=== PATIENT | male | born 1945 | race Caucasian/White ===

== ENCOUNTER 2017-05-10 11:20 | Emergency (ER) | payer MEDICARE ==
[~2017-05-10] VITALS: Ht 172.7 cm; Wt 82.0 kg
[~2017-05-10 11:20] MED LIST: AMLO10TA2 PO; ASPI81TA24 PO; CAPT125TA PO; CORICAP PO; DOCU10CA PO; EFFE150C PO; EFFE75CA75 PO; FLOM5CAP PO; FLUC10TA PO; FOLI1TAB4 PO; FURO20TA2 PO; FURO40TA2 PO; LIPI20TA PO; LISI10TA4 PO; LISI40TAB PO; METO-346 PO; MORP15TA2 PO; MORP60TA PO; MSIR30TA PO; OXYC1TAB23 PO; PANT40TA2 PO; PLAV1TAB2 PO; STOO100C PO; TYLE325T5 PO; VITA200016 PO; WARF-23 PO; WARF4TAB51 PO
[2017-05-10] MEDS ORDERED: SPIR25TA2 PO (11:36)
[2017-05-10] MEDS ORDERED: CARV6.25 PO (11:36)
[2017-05-10] MEDS ORDERED: LASI40TA PO (11:36)
[2017-05-10 13:09] LABS: INR 2.43
[2017-05-10 13:10] LABS: ADD MANUAL DIFFER YES; MEAN CORPUSCULAR HEMOGLOBIN 32.1 pg (27.0-33.0); MEAN CORPUSCULAR HGB CONC 35.2 g/dl (32.0-36.5); MEAN CORPUSCULAR VOLUME 91.1 fl (80.0-96.0); PLATELET COUNT, AUTOMATED 185 k/mm3 (150-450); RED CELL DISTRIBUTION WIDTH 13.5 % (11.5-14.5); WHITE BLOOD COUNT 10.8 K/mm3 (4.0-10.0)
[2017-05-10 13:25] LABS: ALBUMIN 3.6 GM/DL (3.2-5.2); ALBUMIN/GLOBULIN RATIO 0.9 (1.00-1.93); BILIRUBIN,DIRECT 0.1 MG/DL (0.0-0.2); BILIRUBIN,TOTAL 0.4 MG/DL (0.2-1.0); CREATININE FOR GFR 2.48 MG/DL (0.70-1.30); GLOMERULAR FILTRATION RATE 27.3 (>42); POTASSIUM SERUM 4.1 MEQ/L (3.5-5.1); TOTAL PROTEIN 7.6 GM/DL (6.4-8.2)
--- NOTE | 2017-05-10 13:33 | ECGEPIP ---
Stationary ECG Study [facility] - ED Test Date: 2017-05-10 Pat Name: MARY ZULETA Department: Room: - Gender: M Offset Pressman: rn : 1945 Requested By: JIHAN KAUR Order Number: [id number] Reading MD: Sudha Andrade Measurements Intervals Gans Rate: 66 P: -85 KS: 211 QRS: 22 QRSD: 110 T: 180 QT: 454 QTc: 476 Interpretive Statements SINUS RHYTHM WITH SINUS ARRHYTHMIA WITH FIRST DEGREE AV BLOCK SEPTAL MYOCARDIAL INFARCTION, OF INDETERMINATE AGE MODERATE T-WAVE ABNORMALITY, CONSIDER LATERAL ISCHEMIA IVCD DECREASED RATE 06/21/16 Electronically Signed On 05-10-2017 13:32:53 EDT by Sudha Andrade
--- NOTE | 2017-05-10 13:39 | REP ---
CT of the abdomen pelvis without IV or bowel contrast: Comparison is 06/09/2016. The visualized lung tang are unremarkable. The unenhanced hepatic parenchyma is homogeneous. There are several small gallbladder calculi. The gallbladder is otherwise unremarkable. The unenhanced pancreas and spleen are unremarkable. The adrenals and unenhanced kidneys are unremarkable. There is no hydronephrosis. There are calcifications in the renal vickey bilaterally, likely vascular calcifications. The abdominal aorta is unremarkable except for calcified atheroma. There are a few normal-sized periaortic nodes, decreased in size from the prior study. The largest node today measures 7 mm short axis (10 mm previous There is no bowel distension or obstruction. Mesentery is unremarkable. Pelvis: The appendix is unremarkable. The bladder is unremarkable. There is no adenopathy or ascites. There are numerous diverticula in the descending colon and sigmoid colon. However, there is no CT evidence of diverticulitis. Impression: Diverticulosis without CT evidence of diverticulitis. Normal-sized periaortic nodes, decreased in size from the comparison study. No hydronephrosis. Signed by Charlie Khalil MD 05/10/2017 01:30 P
[2017-05-10 13:49] LABS: BANDS 1 % (< 11); EOSINOPHILS 1 % (0-5)
[2017-05-10 13:51] LABS: ANISOCYTOSIS 1+; PLATELET CLUMPS SMALL AMT
--- NOTE | 2017-05-10 14:43 | REP ---
Renal ultrasound: Right Kidney: Right kidney is atrophic size measuring 8.5 x 4.1 x 4.5 cm. The right renal cortex is hyperechoic compatible with medical renal disease. There is no hydronephrosis, calculus, mass or cyst except for linear calcifications compatible with vascular atheroma. Left kidney: The left kidney is normal size measuring 10.6 x 4.7 x 5.3 cm. The left renal cortex demonstrates normal echogenicity. There is no hydronephrosis, calculus, mass or cyst except for linear calcifications compatible with vascular atheroma . Impression: Atrophic right kidney. No hydronephrosis on the right on the left. Vascular atheromatous calcifications. Bladder ultrasound: The bladder is adequately distended. No bladder wall polyps or masses. Impression: Negative bladder ultrasound. Signed by Charlie Khalil MD 05/10/2017 02:35 P
[2017-05-10] MEDS ORDERED: LIDOCAINE 2% JELLY 30 ML As Ordered ONE (15:09)
[2017-05-10] MEDS ORDERED: FINA5TAB2 PO (15:29)
[2017-05-10 15:37] VITALS: BP 153/79
== END 2017-05-10 15:54 | disposition home or self-care (01) ==
LOC: M ED 11:20
DX: N40.1 Benign prostatic hyperplasia with lower urinary tract symptoms (principal); K57.90 Diverticulosis of intestine, part unspecified, without perforation or abscess without bleeding; K80.20 Calculus of gallbladder without cholecystitis without obstruction; N18.9 Chronic kidney disease, unspecified; I25.10 Atherosclerotic heart disease of native coronary artery without angina pectoris; I25.2 Old myocardial infarction; I50.9 Heart failure, unspecified; K21.9 Gastro-esophageal reflux disease without esophagitis; F32.9 Major depressive disorder, single episode, unspecified; I73.9 Peripheral vascular disease, unspecified; Z87.891 Personal history of nicotine dependence; Z95.810 Presence of automatic (implantable) cardiac defibrillator; Z95.2 Presence of prosthetic heart valve; Z79.82 Long term (current) use of aspirin; Z79.899 Other long term (current) drug therapy; Z88.5 Allergy status to narcotic agent; Z88.4 Allergy status to anesthetic agent; Z88.8 Allergy status to other drugs, medicaments and biological substances

== ENCOUNTER 2017-07-11 10:48 | Inpatient (IN) | payer OTHER, MEDICARE ==
[~2017-07-11] VITALS: Ht 175.3 cm; Wt 80.9 kg
[~2017-07-11 10:48] MED LIST changes: +CARV6.25 PO; +FINA5TAB2 PO; +LASI40TA PO; +SPIR25TA2 PO
[2017-07-11] MEDS ORDERED: WELLTAB38 PO (11:13)
[2017-07-11] MEDS ORDERED: OXYC-405 PO (11:13)
[2017-07-11] MEDS ORDERED: ZOLP6.25 PO (11:13)
[2017-07-11 11:58] LABS: BASO # 0.1 10^3/uL (0.0-0.2); BASO % 0.4 % (0.0-1.0); EOS # 0.2 10^3/uL (0.0-0.50); EOS % 1.2 % (0.0-3.0); IMMATURE GRANULOCYTE % 0.6 % (0-0); LYMPH # 1.6 10^3/uL (1.5-4.5); LYMPH % 12.9 % (24.0-44.0); MEAN CORPUSCULAR HEMOGLOBIN 31.7 pg (27.0-33.0); MEAN CORPUSCULAR HGB CONC 33.8 g/dl (32.0-36.5); MEAN CORPUSCULAR VOLUME 93.5 fl (80.0-96.0); MONO # 1.1 10^3/uL (0.0-0.8); MONO % 9.3 % (0.0-5.0); NEUTROPHILS # 9.1 10^3/uL (1.8-7.7); NEUTROPHILS % 75.6 % (36.0-66.0); PLATELET COUNT, AUTOMATED 222 10^3/uL (150-450); WHITE BLOOD COUNT 12.1 10^3/uL (4.0-10.0)
[2017-07-11 12:07] LABS: CALCIUM LEVEL 8.9 MG/DL (8.8-10.2); CREATININE FOR GFR 1.82 MG/DL (0.70-1.30); GLOMERULAR FILTRATION RATE 39.1 (>42)
[2017-07-11 12:40] LABS: INR 2.02
--- NOTE | 2017-07-11 13:05 | REP ---
Noncontrast head CT: History: Altered mental status. Patient on Coumadin. Comparison study: June 21, 2016. Findings: Digital lateral radio frequency engineer radiograph is unremarkable. The patient is edentulous. Bony calvarium is intact. There is fairly heavy vascular calcification in the parotid and vertebral arteries. Incidental note is made of a mass in the left ethmoid sinuses extending into the medial wall of the left orbit and bowing the medial rectus muscle on the left. This is unchanged from the June 21, 2016 prior study. 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 This is unchanged in appearance or size from MRI study dated July 24, 2014. On soft tissue window settings, there are small vessel atherosclerotic changes bilaterally as before. There is diffuse cerebral atrophy. There is no evidence of infarct or hemorrhage. No midline shift or extra-axial fluid collection is seen. Impression: Vascular calcification, diffuse atrophy, small vessel atherosclerotic changes. No acute intracranial abnormality. 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 Signed by Castro Berumen MD 07/11/2017 02:20 P
--- NOTE | 2017-07-11 13:16 | REP ---
Portable chest x-ray: Sitting AP view. History: Weakness. Comparison chest x-ray: June 21, 2016. Findings: Prior median sternotomy wires are seen. Status post cervical discectomy and fusion plating. A unipolar pacemaker is seen in the right heart via the left side. EKG electrodes are noted. The lungs are well inflated and clear. The pleural angles are sharp. Heart is not enlarged. Pulmonary vasculature is not increased. Impression: Pacemaker in place, prior sternotomy. A left atrial appendage clip is seen as before. No active disease. Signed by Castro Berumen MD 07/11/2017 02:20 P
--- NOTE | 2017-07-11 14:03 | REP ---
CT study of the cervical spine without contrast: History: Prior surgery for central cord syndrome. Upper and lower extremity weakness. Comparison CT study April 15, 2016. Technique: Helical scanning is acquired and overlapping 2 mm high resolution axial images were generated and reviewed at bone and soft tissue window settings. Coronal and sagittal multiplanar re-formations images are generated. CT findings: The patient is status post ventral discectomy and fusion plating from C2 through C5 . This is unchanged from the comparison study. There is degenerative narrowing and anterior and posterior osteophytic ridging at C5-6 and C6-7 as before. There is no evidence of fracture or bony erosive or destructive lesion. No subluxation is seen. There is some osteoarthritic facet hypertrophy in the lower cervical spine. The left C3-4 facet is ankylosed. The right C2-3 and C3-4 facet joints appear at least partially fused. This is unchanged. Alignment is normal and unchanged. There is posterior longitudinal ligament ossification on either side of midline at the ventral margin of the spinal canal at the C4 level. This produces central canal stenosis. It is unchanged. On the right at C5, there is somewhat nodular ossification of the anterior longitudinal ligament versus discogenic spurring which compresses the right ventral lateral aspect of the cord and produces moderate central canal stenosis. This is unchanged as well. There is posterior osteophytic ridging producing moderate central canal stenosis at C5-6 with bilateral uncovertebral spurring and C5-6 unchanged. Similar slightly less prominent changes are noted C6-7 again with central canal stenosis. This is also unchanged. Neural foraminal narrowing is noted particularly on the right at C5-6 and to some degree on the left. Impression: Extensive fusion C2-C5. 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 Central canal stenosis is seen at C5-6 and C6-7 as well with degenerative spondylosis changes here and bilateral neural foraminal narrowing. Findings are stable when compared with the April 15, 2016 study. No acute abnormality seen. Signed by Castro Berumen MD 07/11/2017 02:21 P
[2017-07-11] MEDS ORDERED: FINA5TAB2 PO (14:41)
[2017-07-11] MEDS ORDERED: WARF-23 PO (14:41)
[2017-07-11] MEDS ORDERED: ATOR40TA75 PO (14:41)
[2017-07-11] MEDS ORDERED: VITMTA PO (14:41)
[2017-07-11] MEDS ORDERED: SODIUM CHLORIDE 0.9% 1000 ML IV ONE (16:30)
[2017-07-11] MEDS: NS 1,000 ML IV SCH ×2 (16:42→18:23)
[2017-07-11] MEDS ORDERED: IPRATROPIUM 0.5MG/ALBUTEROL 2.5MG INH SOL UD 3ML (DUONEB)(J7620) NEB PRN (16:45)
[2017-07-11 17:03] LABS: MAGNESIUM LEVEL 2.8 MG/DL (1.8-2.4); PHOSPHORUS LEVEL 3.3 MG/DL (2.5-4.9)
[2017-07-11 17:05] LABS: ALBUMIN 3.5 GM/DL (3.2-5.2); BILIRUBIN,TOTAL 0.6 MG/DL (0.2-1.0); CALCIUM LEVEL 8.3 MG/DL (8.8-10.2); CREATININE FOR GFR 1.81 MG/DL (0.70-1.30); GLOMERULAR FILTRATION RATE 39.3 (>42); POTASSIUM SERUM 3.9 MEQ/L (3.5-5.1)
--- NOTE | 2017-07-11 17:17 | HPEPDOC ---
General Date of Admission Primary Care Physician: Jr Ho Collins Attending Physician: KURTIS HSIEH Chief Complaint The patient is a 71-year-old male admitted with a reason for visit of weakness. History of Present Illness This is a pleasant 71-year-old male with a pertinent past medical history of congestive heart failure, chronic renal disease, bioprosthetic mitral valve replacement, atrial fibrillation, AICD, tobacco abuse, chronic back pain on long -term opioids presented in for weakness for 3 days. Patient was brought in via EMS is accompanied by his Mrs. Urias, his daughter, Mei, and son, Ruddy. The patient states that this episode started around Thursday and after he had his nuclear stress test done at Dr. Lopez's office. The patient states after finishing on his noticed that he was extremely pale and unsteady. Patient states that he did not fall on evening. His first episode of falling was Thursday around 9:00 when he was sitting on a kitchen counter barstool. He stated he was reaching for a paper under the chair, felt weak in his legs and fell. Patient stated he felt like he was unable to get up because he had no strength in his upper extremities and his lower extremities. After awhile the episode subsided and the rest of the day he was able to use his walker and do his daily tasks. His second episode happened on the morning of admission at 2 AM when he was trying to get a bed to go use the restroom. Patient states that his legs collapsed on him he fell down on his butt and was leaning against the bed. Patient states it felt like his lower extremities and his upper extremity felt limp. Patient denies any change in his speech or having any dystonia movements of his upper or lower extremities. Patient states in the last 1 month his recent change in medication includes warfarin because his INR has been greater than 3 his current schedule is a half a tab on Thursday and a full tablet on Thursday and Thursday. He also states the most recent Rx change was his OxyContin. He was taking 20 mg BID OxyContin in the beginning of the month and then for the past 1 -1/2 weeks to 2 weeks he was increased to 40 mg BID. Patient was previously on morphine for his chronic back pain but was recently changed to OxyContin via his PCP Dr. Ho. In the ER the patient's vitals were stable his CBC showed a leukocytosis of 12.1 his complete metabolic panel showed Creatinine level was 1.82 which is close to patients baseline between 1.6 to 1.8. His INR was 2.02. Head CT, cervical spine CT and chest x-ray did not show any acute processes. Home Medications Scheduled Aspirin (Aspirin EC) 81 Mg Tab, 81 MG PO QPM, (Reported) Atorvastatin Calcium (Atorvastatin Calcium) 40 Mg Tab, 40 MG PO QPM, (Reported) Bupropion HCl (Wellbutrin Xl) 150 Mg Tab, 150 MG PO DAILY, (Reported) Carvedilol (Carvedilol) 6.25 Mg Tab, 6.25 MG PO BID, (Reported) Docusate Sodium (Stool Softener) 100 Mg Cap, 100 MG PO BID, (Reported) Finasteride (Finasteride) 5 Mg Tab, 5 MG PO DAILY, (Reported) Folic Acid (Folic Acid) 1 Mg Tab, 1 MG PO DAILY, (Reported) Furosemide (Lasix) 40 Mg Tab, 40 MG PO DAILY, (Reported) Multivitamins *[facility] STOCKED* (Thera M Plus *[facility] STOCKED*) 1 Tab Tab, 1 TAB PO DAILY, (Reported) Oxycodone HCl (Oxycodone HCl ER) 40 Mg Tab, 1 TAB PO BID, (Reported) Pantoprazole Sodium (Pantoprazole Sodium) 40 Mg Tab, 40 MG PO DAILY, (Reported) Spironolactone (Spironolactone) 25 Mg Tab, 25 MG PO DAILY, (Reported) Venlafaxine Hydrochloride (Effexor Xr) 75 Mg Cap, 225 MG PO DAILY, (Reported) Warfarin Sod (Warfarin Sodium) 5 Mg Tab, 5 MG PO 4XWK, (Reported) SUN, TUES, THURS, SAT Warfarin Sod (Warfarin Sodium) 5 Mg Tab, 2.5 MG PO 3XW, (Reported) MON, WED, FRI Zolpidem Tartrate (Zolpidem Tartrate ER) 6.25 Mg Tab, 6.25 MG PO QHS, (Reported) Allergies Coded Allergies: Terbinafine (Unverified Allergy, Intermediate, HIVES, 07/11/17) Fentanyl (Verified Allergy, Unknown, 03/22/15) Lidocaine (Verified Allergy, Unknown, 03/22/15) Past Medical History Medical History 1. Congestive heart failure 2. Chronic renal failure 3. Bioprosthetic mitral valve replacement, 09/01/14 4. Autonomic implantable cardioverter-defibrillator 5. Hyperlipidemia 6. Chronic back pain 7. Cardiovascular disease 8. Hypertension 9. Peripheral vascular disease 10. Tobacco abuse 11. Gastroesophageal reflux disease 12. Depression 13. Atrial fibrillation Surgical History 1. Mitral valve replacement 2. AICD insertion 3. Carotid endarterectomy 4. Multiple back surgeries Social History * Smoker: current smoker (50+ years) Alcohol: Denies Drugs: denies Lives at home with his Review of Symptoms Constitutional: Reports: Weakness (generalized weakness) ENT: Denies: Head Aches Pulmonary: Denies: Dyspnea, Cough Cardiovascular: Denies: Chest Pain, Palpitations Gastrointestinal: Reports: Constipation (chronic), Denies: Nausea, Vomiting, Abdominal Pain, Diarrhea Hematologic: Denies: Bruising (lightheadedness when changing position.) Neurological: Reports: Weakness, Incoordination (unable to move legs), Other Symptoms, Denies: Change in speech, Confusion Physical Examination General Exam: Positive: Alert, Cooperative, No Acute Distress Eye Exam: Positive: PERRLA (Miosis ), Negative: Ptosis ENT Exam: Positive: Atraumatic, Mucous membr. moist/pink (with dentures) Neck Exam: Positive: Supple, Negative: JVD Chest Exam: Positive: Wheezing (expiratory wheezing bilaterally R>L), Negative: Clear to auscultation, Normal air movement Heart Exam: Positive: Rate Normal, Regular Rhythm Telemetry: Positive: Sinus Abdomen Exam: Positive: Normal bowel sounds, Soft, Negative: Tenderness Extremity Exam: Negative: Clubbing, Cyanosis, Edema Skin Exam: Positive: Nl turgor and temperature Neuro Exam: Positive: Normal Speech (soft-spoken but family said that is baseline), Strength at 5/5 X4 ext, Normal Tone, Sensation Intact, Cranial Nerves 3-12 NL Psych Exam: Positive: Mental status NL Vital Signs Vital Signs Date Time Temp Pulse Resp B/P (MAP) Pulse Ox O2 Delivery O2 Flow Rate FiO2 07/11/17 13:10 97.3 70 20 138/77 (97) 96 Room Air Laboratory Data Labs 24H Laboratory Tests 2 07/11/17 11:29: Immature Granulocyte % (Auto) 0.6H, White Blood Count 12.1H, Red Blood Count 4.17L, Hemoglobin 13.2L, Hematocrit 39.0L, Mean Corpuscular Volume 93.5, Mean Corpuscular Hemoglobin 31.7, Mean Corpuscular Hemoglobin Concent 33.8, Red Cell Distribution Width 14.0, Platelet Count 222, Neutrophils (%) (Auto) 75.6H, Lymphocytes (%) (Auto) 12.9L, Monocytes (%) (Auto) 9.3H, Eosinophils (%) (Auto) 1.2, Basophils (%) (Auto) 0.4, Neutrophils # (Auto) 9.1H, Lymphocytes # (Auto) 1.6, Monocytes # (Auto) 1.1H, Eosinophils # (Auto) 0.2, Basophils # (Auto) 0.1, Immature Granulocyte # (Auto) 0.1H, Nucleated Red Blood Cells % (auto) 0.0, Anion Gap 7L, Glomerular Filtration Rate 39.1L, Blood Urea Nitrogen 38H, Creatinine 1.82H, Sodium Level 139, Potassium Level 4.0, Chloride Level 102, Carbon Dioxide Level 30, Calcium Level 8.9, Total Creatine Kinase 67, Creatine Kinase MB 1.8, Creatine Kinase MB Relative Index 2.68, Troponin I 0.03 07/11/17 12:23: Prothrombin Time 23.6H, Prothromb Time International Ratio 2.02 07/11/17 14:31: Urine Appearance CLEAR, Urine Color YELLOW, Urine pH 5.0, Urine Specific [place] 1.010, Urine Protein NEGATIVE, Urine Glucose (UA) NEGATIVE, Urine Ketones NEGATIVE, Urine Urobilinogen 0.2, Urine Bilirubin NEGATIVE, Urine Leukocyte Esterase NEGATIVE, Urine Blood NEGATIVE, Urine Nitrite POSITIVE, Urine WBC (Auto) 0, Urine RBC (Auto) 1, Urine Hyaline Casts (Auto) 1, Urine Bacteria (Auto) NEGATIVE, Urine Squamous Epithelial Cells 0, Urine Mucus (Auto) SMALL, Urine Sperm (Auto) 07/11/17 14:35: Lactic Acid Level 1.0 07/11/17 14:36: CBC/BMP Laboratory Tests 07/11/17 11:29 Red Blood Count 4.17 L, Mean Corpuscular Volume 93.5, Mean Corpuscular Hemoglobin 31.7, Mean Corpuscular Hemoglobin Concent 33.8, Red Cell Distribution Width 14.0, Neutrophils (%) (Auto) 75.6 H, Lymphocytes (%) (Auto) 12.9 L, Monocytes (%) (Auto) 9.3 H, Eosinophils (%) (Auto) 1.2, Basophils (%) ( Auto) 0.4, Neutrophils # (Auto) 9.1 H, Lymphocytes # (Auto) 1.6, Monocytes # ( Auto) 1.1 H, Eosinophils # (Auto) 0.2, Basophils # (Auto) 0.1, Calcium Level 8.9 , Total Creatine Kinase 67 Microbiology Microbiology 07/11/17 Blood Culture, Received Pending 07/11/17 Blood Culture, Received Pending 07/11/17 Urine Culture, Received Pending Assessment/Plan 1. Generalized weakness of the upper or lower extremities likely due to deconditioned muscles versus an infectious cause versus TIA versus stroke. Head CT, chest x-ray and cervical CT was negative for any acute processes. There was a leukocytosis of 12.1 on admission. UA was negative for bacteria or leukocyte esterase but was negative for nitrate. Patient is not complaining of any dysuria or pungent urine. Urine and blood cultures have been sent. Unlikely this is myasthenia gravis but we have ordered an acetylcholine receptor antibody test which is currently pending. Have ordered PT and OT to evaluate and treat the patient. 2. Expiratory wheezing R>L, have ordered DuoNeb's. Likely due to emphysema/COPD from patient's history of chronic tobacco abuse versus an infectious cause. Patient has been afebrile. Chest x-ray was negative for any acute changes. We' ll continue to monitor. 3. Lightheadedness. Orthostatics came back positive we'll hold the patient's Lasix, Spirolactone and Effexor because they're known causes of orthostatic hypotension. We have started the patient with fluids and will continue to monitor him. 4. Atrial fibrillation. Patient has an AICD, and will continue with home warfarin schedule and carvedilol . We'll get daily INRs. 5. History of Chronic kidney disease. Patient's creatinine was 1.8 which is close to patient's baseline. We'll continue to monitor the patient with daily CMPs 6. History of Congestive heart failure. We'll continue with patient's home medication, but hold Lasix and Spirolactone 7. Depression. We'll hold on the patient Effexor because patient's orthostatics were positive. And they are known to cause orthostatic hypotension. 8. Chronic back pain. Will not continue the patient's OxyContin 40 mg twice a day. Instead while inpatient we will start the patient on OxyContin 20 mg twice a day with Percocet 5 -325mg every 4 hours when necessary for moderate to severe breakthrough pain. 9. Tobacco abuse. Current smoker with a 50+ years of smoking if needed can order nicotine patches. 10. GERD. We'll continue with the patient on his home Protonix 40 mg daily. 11. DVT prophylaxis. Patient is on Coumadin and will follow with daily INRs to make sure in therapeutic levels. Plan / VTE VTE Prophylaxis Ordered?: Yes (Coumadin) GME ATTESTATION GME ATTESTATION My preceptor for this patient encounter was physically present in the building during the encounter and was fully available. As needed, all aspects of the patient interview, examination, medical decision making process, and medical care plan development were reviewed and approved by the preceptor. Preceptor is aware and concurs with the plan as stated in the body of this note and will attest to such by his/her cosignature. ATTENDING NOTE I, Merari Aviles, have both independently examined this patient as well as reviewed the documentation. I have discussed in detail with the resident the findings and plan of treatment as documented in the residents documentation. I will continue to follow the patient and offer further guidance to the patients care as necessary during this hospital stay. HENRI MORA DO Jul 11, 2017 16:27 MERARI AVILES MD Jul 26, 2017 18:12
[2017-07-11 17:45] VITALS: BP 166/80
[2017-07-11] MEDS: WARFARIN SOD 5 MG TAB PO SCH (18:22)
[2017-07-11] MEDS: PERCOCET 5MG/325MG TAB PO PRN (18:32)
[2017-07-11 20:00] VITALS: BP 165/92
[2017-07-11] MEDS ORDERED: IPRATROPIUM 0.5MG/ALBUTEROL 2.5MG INH SOL UD 3ML (DUONEB)(J7620) NEB SCH (20:00)
[2017-07-11] MEDS: ATORVASTATIN 20 MG TAB PO SCH (20:29)
[2017-07-11] MEDS: DOCUSATE SODIUM 100 MG CAP PO SCH (20:29)
[2017-07-11] MEDS: ASPIRIN 81 MG ENTERIC TAB PO SCH (20:30)
[2017-07-11] MEDS: oxyCODONE 20 MG CR TAB PO SCH (20:32)
[2017-07-11] MEDS: zolPIDEM CR 6.25MG TABLET (AMBIEN CR) PO SCH (20:32)
[2017-07-11] MEDS: CARVedilol 6.25 MG TAB PO SCH (20:44)
[2017-07-11] MEDS ORDERED: TAMSULOSIN 0.4 MG CAP PO SCH (21:00)
[2017-07-12] VITALS (9 sets, daily range): BP systolic 100–164; BP diastolic 54–84
[2017-07-12] MEDS: NS 1,000 ML IV SCH ×2 (04:18→17:00)
[2017-07-12] MEDS: PERCOCET 5MG/325MG TAB PO PRN ×3 (04:47→16:58)
[2017-07-12 05:21] LABS: BASO # 0.1 10^3/uL (0.0-0.2); BASO % 0.6 % (0.0-1.0); EOS # 0.2 10^3/uL (0.0-0.50); EOS % 1.8 % (0.0-3.0); IMMATURE GRANULOCYTE % 0.5 % (0-0); LYMPH # 2.3 10^3/uL (1.5-4.5); LYMPH % 23.2 % (24.0-44.0); MEAN CORPUSCULAR HEMOGLOBIN 30.9 pg (27.0-33.0); MEAN CORPUSCULAR VOLUME 93.8 fl (80.0-96.0); MONO # 1.1 10^3/uL (0.0-0.8); MONO % 11.1 % (0.0-5.0); NEUTROPHILS # 6.1 10^3/uL (1.8-7.7); NEUTROPHILS % 62.8 % (36.0-66.0); PLATELET COUNT, AUTOMATED 215 10^3/uL (150-450); RED CELL DISTRIBUTION WIDTH 14.1 % (11.5-14.5); WHITE BLOOD COUNT 9.8 10^3/uL (4.0-10.0)
[2017-07-12 05:45] LABS: ALBUMIN 3.1 GM/DL (3.2-5.2); ALBUMIN/GLOBULIN RATIO 0.82 (1.00-1.93); BILIRUBIN,TOTAL 0.6 MG/DL (0.2-1.0); CALCIUM LEVEL 7.8 MG/DL (8.8-10.2); CREATININE FOR GFR 1.67 MG/DL (0.70-1.30); GLOMERULAR FILTRATION RATE 43.1 (>42); MAGNESIUM LEVEL 2.6 MG/DL (1.8-2.4); POTASSIUM SERUM 3.7 MEQ/L (3.5-5.1); TOTAL PROTEIN 6.9 GM/DL (6.4-8.2)
[2017-07-12 05:59] LABS: INR 1.77
[2017-07-12] MEDS: IPRATROPIUM 0.5MG/ALBUTEROL 2.5MG INH SOL UD 3ML (DUONEB)(J7620) NEB SCH ×3 (08:00→20:37)
[2017-07-12] MEDS ORDERED: SPIRONOLACTONE 25 MG TAB PO SCH (09:00)
[2017-07-12] MEDS ORDERED: FUROSEMIDE 40 MG TAB PO SCH (09:00)
[2017-07-12] MEDS ORDERED: VENLAFAXINE **XR** 75MG CAPSULE PO SCH (09:00)
[2017-07-12] MEDS: MULTIVITAMINS/MINERALS THERAP 1 TAB PO SCH (09:06)
[2017-07-12] MEDS: FOLIC ACID 1 MG TAB PO SCH (09:06)
[2017-07-12] MEDS: NICOTINE 14 MG/24 HR TRANSDERMAL TD SCH (09:06)
[2017-07-12] MEDS: CARVedilol 6.25 MG TAB PO SCH ×2 (09:06→20:21)
[2017-07-12] MEDS: DOCUSATE SODIUM 100 MG CAP PO SCH ×2 (09:07→20:20)
[2017-07-12] MEDS: FINASTERIDE 5 MG TAB PO SCH (09:07)
[2017-07-12] MEDS: buPROPion **XL** TABLET 150MG (WELLBUTRIN XL) PO SCH (09:07)
[2017-07-12] MEDS: PANTOPRAZOLE 40MG TAB (PROTONIX) PO SCH (09:07)
[2017-07-12] MEDS: oxyCODONE 20 MG CR TAB PO SCH ×2 (09:15→20:22)
[2017-07-12] MEDS: VENLAFAXINE **XR** 75MG CAPSULE PO SCH (11:01)
--- NOTE | 2017-07-12 16:04 | IPNPDOC ---
Date Seen The patient was seen on 07/12/17. Progress Note Hospitalist Progress Note Subjective: Patient states that he is not feeling well, but is not able to elaborate much more Objective: Physical Exam: Vitals: Vital Sign - Last 24 Hours 07/11/17 07/11/17 07/11/17 07/11/17 16:09 16:10 16:19 17:18 Temp 97.2 Pulse 72 73 71 73 Resp 20 B/P (MAP) 136/76 (96) 100/62 (75) 136/76 (96) 143/67 (92) 100/62 (75) Pulse Ox 96 97 O2 Delivery Room Air 07/11/17 07/11/17 07/11/17 07/11/17 17:30 17:45 18:32 20:00 Temp 98.2 98.3 Pulse 72 80 Resp 18 18 18 18 B/P (MAP) 166/80 (108) 165/92 (116) Pulse Ox 95 97 O2 Delivery Room Air Room Air Room Air 07/11/17 07/11/17 07/12/17 07/12/17 20:32 20:44 00:00 00:00 Temp 98.2 Pulse 64 70 Resp 18 16 B/P (MAP) 140/58 145/63 (90) Pulse Ox 96 92 O2 Delivery Nasal Cannula Room Air O2 Flow Rate 2.0 07/12/17 07/12/17 07/12/17 07/12/17 04:21 04:27 04:28 04:30 Temp 97.0 Pulse 70 76 73 B/P (MAP) 122/84 (97) 125/72 (89) 100/54 (69) Pulse Ox 99 O2 Delivery Nasal Cannula O2 Flow Rate 2.0 07/12/17 07/12/17 07/12/17 07/12/17 04:47 08:00 09:06 09:15 Temp 97.3 Pulse 69 69 Resp 18 16 18 B/P (MAP) 164/78 (106) 164/78 Pulse Ox 98 O2 Delivery Room Air Room Air 07/12/17 07/12/17 07/12/17 07/12/17 09:28 11:33 11:55 12:00 Temp 96.7 Pulse 66 64 70 Resp 20 18 B/P (MAP) 128/70 (89) 162/82 (108) 152/72 (98) Pulse Ox 99 O2 Delivery Room Air Room Air 07/12/17 12:03 Resp 18 O2 Delivery Room Air General: Awake, alert, lying in bed and seems to have very little interest in interacting HEENT: Normocephalic, atraumatic, extraocular movements intact CV: Regular rate and rhythm Lungs: Clear to auscultation bilaterally Abd: Soft, nontender, nondistended Extremities: No edema Neuro: Alert and oriented 3, normal speech, 5 out of 5 strength in all extremities Psych: Very flat affect with anhedonia Labs and Imaging: Laboratory Tests 07/12/17 04:58 Red Blood Count 4.01 L, Mean Corpuscular Volume 93.8, Mean Corpuscular Hemoglobin 30.9, Mean Corpuscular Hemoglobin Concent 33.0, Red Cell Distribution Width 14.1, Neutrophils (%) (Auto) 62.8, Lymphocytes (%) (Auto) 23.2 L, Monocytes (%) (Auto) 11.1 H, Eosinophils (%) (Auto) 1.8, Basophils (%) ( Auto) 0.6, Neutrophils # (Auto) 6.1, Lymphocytes # (Auto) 2.3, Monocytes # (Auto ) 1.1 H, Eosinophils # (Auto) 0.2, Basophils # (Auto) 0.1, Calcium Level 7.8 L, Aspartate Amino Transf (AST/SGOT) 16, Alanine Aminotransferase (ALT/SGPT) 20, Alkaline Phosphatase 140 H, Total Bilirubin 0.6, Total Protein 6.9, Albumin 3.1 L Assessment and Plan: 71-year-old male with chronic systolic CHF, chronic kidney disease stage III, bioprosthetic mitral valve, atrial fibrillation status post AICD, chronic back pain on long-term opioids, depression who presents to the emergency department after several days of extreme weakness with falls which his family reports started after he had a nuclear medicine stress test. 1. Weakness with falls secondary to orthostatis and polypharmacy: I suspect this is multifactorial in nature. At this time, the patient is noted to be orthostatic, which I suspect is contributing to his weakness and falls. We have stopped his home Lasix and spironolactone and lifted his fluid restriction. We will hydrate him gently and continue to monitor him closely. We also will stop his home Flomax, which I discussed with his hunting guide Dr. Lopez. We'll also have PT and OT work with him. Additionally, his home OxyContin was evidently recently increased from 20 mg twice a day to 40 mg twice a day. We will decrease this back to 20 mg twice a day. We will also stop his gabapentin, as that is evidently new medication for him. Acetylcholine receptor antibody is pending, but I do not think this represents a myasthenia gravis. Additionally, CT of his C-spine does show central Canal stenosis at C5-C7, however, it shows that this is stable and has not changed since March 2016. The patient does not have any weakness on a supine exam, and he is not having any difficulty urinating, so I do not think that this represents any contributing factors. He states that the surgeon who was operated on his back in the past is in [place]. 2. Acute on chronic kidney disease stage III: The patient's baseline creatinine is in the mid ones, but upon presentation, his creatinine was 1.82. As mentioned above, we will hydrate him gently, while lifting his fluid restriction and holding his home Lasix and spironolactone. 3. Chronic systolic CHF: It appears that the patient is mildly over diuresed at this point. We are holding his diuretics and hydrating him. The last echo in our system is 2 years old and showed an ejection fraction of 20-25% as well as moderate pulmonary hypertension. We will get an updated echo. 4. Atrial fibrillation status post AICD: Continue the patient on his home Coumadin, and follow daily INRs. His INR today is mildly subtherapeutic, however , yesterday and today are the days where he happens to take 5 mg of Coumadin 2 days in a row, as where the rest of the week he alternates that with 2.5 mg. We will hold off on increasing his Coumadin until we see tomorrow's INR. Currently rate controlled, continue home beta lynn. 5. Chronic back pain on [facility] opioids: As mentioned above, we have decreased his OxyContin back to 20 mg by mouth twice a day. He will also have Percocet as needed for breakthrough pain. We have stopped the gabapentin that was recently started. 6. BPH: We will continue the patient on his home Proscar, but given his orthostasis, we will stop his Flomax, a change which I have discussed with his hunting guide Dr. Lopez, who is in agreement. 7. Depression: The patient has evidently been on Effexor and Wellbutrin for a long while. We will continue them both at this time, as the family reports that he has had adverse outcomes to stopping them in the past. We will attempt to adjust his other medications that may cause orthostasis before we change these. The patient still appears very flat, but he denies any suicidal ideation. DVT prophylaxis: Home Coumadin and SCDs Dispo: pending improvement in orthostasis VS, I&O, 24H, Fishbone Vital Signs/I&O Vital Signs Date Time Temp Pulse Resp B/P (MAP) Pulse Ox O2 Delivery O2 Flow Rate FiO2 07/12/17 12:03 18 Room Air 07/12/17 12:00 96.7 64 99 07/12/17 11:55 162/82 (108) 152/72 (98) 07/12/17 04:30 2.0 I&O- Last 24 Hours up to 6 AM 07/13/17 06:00 Intake Total 240 ml Output Total 350 ml Balance -110 ml Laboratory Data 24H LABS Laboratory Tests 2 07/12/17 04:58: Immature Granulocyte % (Auto) 0.5H, White Blood Count 9.8, Red Blood Count 4.01L , Hemoglobin 12.4L, Hematocrit 37.6L, Mean Corpuscular Volume 93.8, Mean Corpuscular Hemoglobin 30.9, Mean Corpuscular Hemoglobin Concent 33.0, Red Cell Distribution Width 14.1, Platelet Count 215, Neutrophils (%) (Auto) 62.8, Lymphocytes (%) (Auto) 23.2L, Monocytes (%) (Auto) 11.1H, Eosinophils (%) (Auto ) 1.8, Basophils (%) (Auto) 0.6, Neutrophils # (Auto) 6.1, Lymphocytes # (Auto) 2.3, Monocytes # (Auto) 1.1H, Eosinophils # (Auto) 0.2, Basophils # (Auto) 0.1, Immature Granulocyte # (Auto) 0.1H, Nucleated Red Blood Cells % (auto) 0.0, Prothrombin Time 21.2H, Prothromb Time International Ratio 1.77, Anion Gap 7L, Glomerular Filtration Rate 43.1, Blood Urea Nitrogen 34H, Creatinine 1.67H, Sodium Level 141, Potassium Level 3.7, Chloride Level 106, Carbon Dioxide Level 28, Calcium Level 7.8L, Aspartate Amino Transf (AST/SGOT) 16, Alanine Aminotransferase (ALT/SGPT) 20, Alkaline Phosphatase 140H, Total Bilirubin 0.6, Total Protein 6.9, Albumin 3.1L, Phosphorus Level 3.4, Magnesium Level 2.6H, C- Reactive Protein, Quantitative 0.92H, Albumin/Globulin Ratio 0.82L CBC/BMP Laboratory Tests 07/12/17 04:58 Red Blood Count 4.01 L, Mean Corpuscular Volume 93.8, Mean Corpuscular Hemoglobin 30.9, Mean Corpuscular Hemoglobin Concent 33.0, Red Cell Distribution Width 14.1, Neutrophils (%) (Auto) 62.8, Lymphocytes (%) (Auto) 23.2 L, Monocytes (%) (Auto) 11.1 H, Eosinophils (%) (Auto) 1.8, Basophils (%) ( Auto) 0.6, Neutrophils # (Auto) 6.1, Lymphocytes # (Auto) 2.3, Monocytes # (Auto ) 1.1 H, Eosinophils # (Auto) 0.2, Basophils # (Auto) 0.1, Calcium Level 7.8 L, Aspartate Amino Transf (AST/SGOT) 16, Alanine Aminotransferase (ALT/SGPT) 20, Alkaline Phosphatase 140 H, Total Bilirubin 0.6, Total Protein 6.9, Albumin 3.1 L Microbiology Microbiology 07/11/17 Blood Culture - Preliminary, Resulted No growth after 24 hours . All specim... 07/11/17 Blood Culture - Preliminary, Resulted No growth after 24 hours . All specim... 07/11/17 Urine Culture - Final, Complete KURTIS HSIEH Jul 12, 2017 16:04
[2017-07-12] MEDS: WARFARIN SOD 5 MG TAB PO SCH (16:57)
[2017-07-12] MEDS: ATORVASTATIN 20 MG TAB PO SCH (20:21)
[2017-07-12] MEDS: ASPIRIN 81 MG ENTERIC TAB PO SCH (20:21)
[2017-07-12] MEDS: zolPIDEM CR 6.25MG TABLET (AMBIEN CR) PO SCH (20:34)
[2017-07-13] VITALS (8 sets, daily range): BP systolic 140–182; BP diastolic 66–88
[2017-07-13 05:17] LABS: BASO # 0.1 10^3/uL (0.0-0.2); BASO % 0.6 % (0.0-1.0); EOS # 0.2 10^3/uL (0.0-0.50); IMMATURE GRANULOCYTE % 0.5 % (0-0); LYMPH # 2.4 10^3/uL (1.5-4.5); LYMPH % 21.2 % (24.0-44.0); MEAN CORPUSCULAR HEMOGLOBIN 31.3 pg (27.0-33.0); MEAN CORPUSCULAR HGB CONC 33.2 g/dl (32.0-36.5); MEAN CORPUSCULAR VOLUME 94.6 fl (80.0-96.0); MONO # 1.1 10^3/uL (0.0-0.8); MONO % 9.7 % (0.0-5.0); NEUTROPHILS # 7.4 10^3/uL (1.8-7.7); PLATELET COUNT, AUTOMATED 204 10^3/uL (150-450); RED CELL DISTRIBUTION WIDTH 14.2 % (11.5-14.5); WHITE BLOOD COUNT 11.2 10^3/uL (4.0-10.0)
[2017-07-13 05:26] LABS: INR 1.9
[2017-07-13 05:34] LABS: CALCIUM LEVEL 8.2 MG/DL (8.8-10.2); CREATININE FOR GFR 1.38 MG/DL (0.70-1.30); GLOMERULAR FILTRATION RATE 53.8 (>42); MAGNESIUM LEVEL 2.3 MG/DL (1.8-2.4); POTASSIUM SERUM 3.8 MEQ/L (3.5-5.1)
[2017-07-13] MEDS: PERCOCET 5MG/325MG TAB PO PRN ×3 (05:54→17:07)
--- NOTE | 2017-07-13 07:51 | ECGEPIP ---
Stationary ECG Study [facility] - ED Test Date: 2017-07-11 Pat Name: MARY ZULETA Department: Room: - Gender: M Learning Design Specialist: inder : 1945 Requested By: Fredis Waggoner Order Number: [id number] Reading MD: Sudha Andrade Measurements Intervals [place] Rate: 71 P: 101 [place]: 264 QRS: 28 QRSD: 101 T: 147 QT: 440 QTc: 481 Interpretive Statements SINUS RHYTHM WITH FIRST DEGREE AV BLOCK LOW QRS VOLTAGE IN EXTREMITY LEADS ANTEROSEPTAL MYOCARDIAL INFARCTION, OF INDETERMINATE AGE NSTTW ABNORMALITY SIMILAR 05/10/17 Electronically Signed On 07-13-2017 7:51:25 EDT by Sudha Andrade
[2017-07-13] MEDS: IPRATROPIUM 0.5MG/ALBUTEROL 2.5MG INH SOL UD 3ML (DUONEB)(J7620) NEB SCH ×3 (08:25→20:50)
[2017-07-13] MEDS: NICOTINE 14 MG/24 HR TRANSDERMAL TD SCH (09:17)
[2017-07-13] MEDS: VENLAFAXINE **XR** 75MG CAPSULE PO SCH (09:18)
[2017-07-13] MEDS: oxyCODONE 20 MG CR TAB PO SCH ×2 (09:19→21:06)
[2017-07-13] MEDS: FOLIC ACID 1 MG TAB PO SCH (09:19)
[2017-07-13] MEDS: FINASTERIDE 5 MG TAB PO SCH (09:20)
[2017-07-13] MEDS: PANTOPRAZOLE 40MG TAB (PROTONIX) PO SCH (09:20)
[2017-07-13] MEDS: CARVedilol 6.25 MG TAB PO SCH ×2 (09:20→21:07)
[2017-07-13] MEDS: buPROPion **XL** TABLET 150MG (WELLBUTRIN XL) PO SCH (09:21)
[2017-07-13] MEDS: FUROSEMIDE 40 MG TAB PO SCH (09:21)
[2017-07-13] MEDS: MULTIVITAMINS/MINERALS THERAP 1 TAB PO SCH (09:21)
[2017-07-13] MEDS: DOCUSATE SODIUM 100 MG CAP PO SCH ×2 (09:21→21:07)
[2017-07-13] MEDS ORDERED: WARFARIN SOD 2.5 MG TAB PO SCH (17:00)
[2017-07-13] MEDS ORDERED: WARFARIN SOD 5 MG TAB PO ONE (17:00)
--- NOTE | 2017-07-13 18:33 | IPNPDOC ---
Date Seen The patient was seen on 07/13/17. Progress Note Hospitalist Progress Note Subjective: Patient states that he is not feeling well, but is again not able to elaborate much more Objective: Physical Exam: Vitals: Vital Sign - Last 24 Hours 07/12/17 07/12/17 07/12/17 07/12/17 20:11 20:11 20:15 20:21 Temp 97.3 Pulse 71 71 71 72 Resp 20 B/P (MAP) 129/60 (83) 129/60 (83) 129/60 138/73 (94) Pulse Ox 97 O2 Delivery Room Air Room Air 07/12/17 07/12/17 07/13/17 07/13/17 20:22 23:58 00:17 04:05 Temp 97.5 Pulse 70 Resp 18 18 B/P (MAP) 152/68 (96) Pulse Ox 97 95 O2 Delivery Room Air Room Air Room Air 07/13/17 07/13/17 07/13/17 07/13/17 05:34 05:34 05:54 06:36 Temp 98.8 Pulse 70 71 70 Resp 18 20 B/P (MAP) 167/78 (107) 167/78 (107) 163/70 (101) Pulse Ox 97 97 97 O2 Delivery Room Air 07/13/17 07/13/17 07/13/17 07/13/17 07:45 08:00 09:19 09:20 Temp 97.6 Pulse 69 69 Resp 20 18 B/P (MAP) 150/70 (96) 150/70 Pulse Ox 95 O2 Delivery Room Air 07/13/17 07/13/17 07/13/17 07/13/17 12:00 12:38 16:00 17:07 Temp 97.6 96.8 Pulse 69 63 Resp 20 18 20 18 B/P (MAP) 154/80 (104) 147/67 (93) 160/74 (102) Pulse Ox 96 97 O2 Delivery Room Air Room Air 07/13/17 17:37 Resp 18 General: Awake, alert, lying in bed and seems to have very little interest in interacting HEENT: Normocephalic, atraumatic, extraocular movements intact CV: Regular rate and rhythm Lungs: Clear to auscultation bilaterally Abd: Soft, nontender, nondistended Extremities: No edema Neuro: Alert and oriented 3, normal speech, 5 out of 5 strength in all extremities Psych: Very flat affect with anhedonia Labs and Imaging: Laboratory Tests 07/13/17 04:35 Red Blood Count 3.86 L, Mean Corpuscular Volume 94.6, Mean Corpuscular Hemoglobin 31.3, Mean Corpuscular Hemoglobin Concent 33.2, Red Cell Distribution Width 14.2, Neutrophils (%) (Auto) 66.0, Lymphocytes (%) (Auto) 21.2 L, Monocytes (%) (Auto) 9.7 H, Eosinophils (%) (Auto) 2.0, Basophils (%) ( Auto) 0.6, Neutrophils # (Auto) 7.4, Lymphocytes # (Auto) 2.4, Monocytes # (Auto ) 1.1 H, Eosinophils # (Auto) 0.2, Basophils # (Auto) 0.1, Calcium Level 8.2 L Assessment and Plan: 71-year-old male with chronic systolic CHF, chronic kidney disease stage III, bioprosthetic mitral valve, atrial fibrillation status post AICD, chronic back pain on long-term opioids, depression who presents to the emergency department after several days of extreme weakness with falls which his family reports started after he had a nuclear medicine stress test. 1. Weakness with falls secondary to orthostatis and polypharmacy: I suspect this is multifactorial in nature. Initially, the patient was noted to be orthostatic, which I suspect is contributing to his weakness and falls. We held his home Lasix and spironolactone and lifted his fluid restriction while gently hydrating him, and orthostasis has now resolved. Given his significant CHF, we will attempt to restart lasix now. We have also stopped his home Flomax, which I discussed with his lay midwife Dr. Lopez. PT and OT are working with him. Additionally, his home OxyContin was evidently recently increased from 20 mg twice a day to 40 mg twice a day. We have decreased this back to 20 mg twice a day. We have also stopped his gabapentin, as that is evidently new medication for him. Acetylcholine receptor antibody is pending, but I do not think this represents a myasthenia gravis. Additionally, CT of his C-spine does show central Canal stenosis at C5-C7, however, it shows that this is stable and has not changed since March 2016. The patient does not have any weakness on a supine exam, and he is not having any difficulty urinating, so I do not think that this represents any contributing factors. He states that the surgeon who was operated on his back in the past is in [place]. 2. Acute on chronic kidney disease stage III: The patient's baseline creatinine is in the mid ones, but upon presentation, his creatinine was 1.82. As mentioned above, this resolved with gentle hydration and temporarily lifting his fluid restriction and holding his home Lasix and spironolactone. At this point, we will reintroduce his lasix. 3. Chronic systolic CHF: It appears that the patient was initially mildly over diuresed. The last echo in our system is 2 years old and showed an ejection fraction of 20-25% as well as moderate pulmonary hypertension. Updated echo is pending. We are now restarting his home lasix after initially holding his diuretics. 4. Atrial fibrillation status post AICD: Continue the patient on his home Coumadin, and follow daily INRs. His INR today is mildly subtherapeutic, so instead of giving him 2.5mg today, we will give him 5mg and recheck INR in the AM. Currently rate controlled, continue home beta lynn. 5. Chronic back pain on senior living opioids: As mentioned above, we have decreased his OxyContin back to 20 mg by mouth twice a day. He will also have Percocet as needed for breakthrough pain. We have stopped the gabapentin that was recently started. 6. BPH: We will continue the patient on his home Proscar, but given his initial orthostasis, we have stopped his Flomax, a change which I have discussed with his lay midwife Dr. Lopez, who is in agreement. 7. Depression: The patient has evidently been on Effexor and Wellbutrin for a long while. We will continue them both at this time, as the family reports that he has had adverse outcomes to stopping them in the past. We will attempt to adjust his other medications that may cause orthostasis before we change these. The patient still appears very flat, but he denies any suicidal ideation. DVT prophylaxis: Home Coumadin and SCDs Dispo: pending passing PT; ok to move to the floor VS, I&O, 24H, Fishbone Vital Signs/I&O Vital Signs Date Time Temp Pulse Resp B/P (MAP) Pulse Ox O2 Delivery O2 Flow Rate FiO2 10/16/17 17:37 18 07/13/17 16:00 96.8 63 147/67 (93) 97 Room Air 07/12/17 04:30 2.0 I&O- Last 24 Hours up to 6 AM 07/14/17 05:59 Intake Total 600 ml Output Total 1600 ml Balance -1000 ml Laboratory Data 24H LABS Laboratory Tests 2 07/13/17 04:35: Immature Granulocyte % (Auto) 0.5H, White Blood Count 11.2H, Red Blood Count 3.86L, Hemoglobin 12.1L, Hematocrit 36.5L, Mean Corpuscular Volume 94.6, Mean Corpuscular Hemoglobin 31.3, Mean Corpuscular Hemoglobin Concent 33.2, Red Cell Distribution Width 14.2, Platelet Count 204, Neutrophils (%) (Auto) 66.0, Lymphocytes (%) (Auto) 21.2L, Monocytes (%) (Auto) 9.7H, Eosinophils (%) (Auto) 2.0, Basophils (%) (Auto) 0.6, Neutrophils # (Auto) 7.4, Lymphocytes # (Auto) 2.4, Monocytes # (Auto) 1.1H, Eosinophils # (Auto) 0.2, Basophils # (Auto) 0.1, Immature Granulocyte # (Auto) 0.1H, Nucleated Red Blood Cells % (auto) 0.0, Prothrombin Time 22.4H, Prothromb Time International Ratio 1.90, Anion Gap 5L, Glomerular Filtration Rate 53.8, Blood Urea Nitrogen 29H, Creatinine 1.38H, Sodium Level 140, Potassium Level 3.8, Chloride Level 109H, Carbon Dioxide Level 26, Calcium Level 8.2L, Magnesium Level 2.3, C-Reactive Protein, Quantitative 0.78H CBC/BMP Laboratory Tests 07/13/17 04:35 Red Blood Count 3.86 L, Mean Corpuscular Volume 94.6, Mean Corpuscular Hemoglobin 31.3, Mean Corpuscular Hemoglobin Concent 33.2, Red Cell Distribution Width 14.2, Neutrophils (%) (Auto) 66.0, Lymphocytes (%) (Auto) 21.2 L, Monocytes (%) (Auto) 9.7 H, Eosinophils (%) (Auto) 2.0, Basophils (%) ( Auto) 0.6, Neutrophils # (Auto) 7.4, Lymphocytes # (Auto) 2.4, Monocytes # (Auto ) 1.1 H, Eosinophils # (Auto) 0.2, Basophils # (Auto) 0.1, Calcium Level 8.2 L Microbiology Microbiology 07/11/17 Blood Culture - Preliminary, Resulted No Growth after 48 hours. All Specime... 07/11/17 Blood Culture - Preliminary, Resulted No Growth after 48 hours. All Specime... 07/11/17 Urine Culture - Final, Complete KURTIS HSIEH Jul 13, 2017 18:33
[2017-07-13] MEDS: zolPIDEM CR 6.25MG TABLET (AMBIEN CR) PO SCH (21:05)
[2017-07-13] MEDS: ATORVASTATIN 20 MG TAB PO SCH (21:06)
[2017-07-13] MEDS: ASPIRIN 81 MG ENTERIC TAB PO SCH (21:06)
--- NOTE | 2017-07-13 21:21 | ECHO ---
DATE OF PROCEDURE: 07/13/2017 REFERRING PHYSICIAN: Dr. Savannah Vaughan INDICATION: Heart failure, unspecified. HEIGHT: 175 cm WEIGHT: 77 kg MEASUREMENTS: Aortic root: 3.4 cm Proximal ascending aorta: 5.1 cm Ventricular septum: 1.23 cm Posterior wall: 1.24 cm Left ventricle diastole: 5.1 cm LVOT: 2.1 cm Inferior vena cava: 1.4 cm DOPPLER MEASUREMENTS: Aortic valve velocity: 121 cm/s LVOT velocity: 71.0 cm/s LVOT VTI: 15.6 cm Mitral E velocity: 144 cm/s Mitral A velocity: 113 cm/s Mitral deceleration time: 271 ms Mild tricuspid regurgitation. Estimated right ventricle systolic pressure: 34 mmHg assuming a pressure of 5 mmHg Pulmonary artery systolic pressure: 30 mmHg by pulmonary acceleration time method. MITRAL ANNULAR TISSUE DOPPLER: E prime septal: 3.7 cm/s E prime lateral: 4.1 cm/s DESCRIPTION: Rhythm was sinus. Image quality was moderately technically difficult. No pericardial effusion. This is a 2D, M-mode, color flow Doppler and pulse wave Doppler examination and included mitral annular tissue Doppler. CONCLUSIONS: 1. Very mild concentric left ventricular hypertrophy. Moderately severe reduction in overall left ventricular (LV) systolic function. Left ventricular ejection fraction (LVEF) 35% by visual estimate. Akinesis of the left ventricle apex and extending into the basal anteroseptal and basal inferoseptal segments. Hypokinesis involving the basal anteroseptal and basal inferoseptal LV segments; probably normal LV wall motion and wall thickening elsewhere. 2. Normally functioning mitral valve bioprosthesis. 3. Moderate left atrial dilatation. 4. Unable to adequately assess LV diastolic function in the setting of mitral valve bioprosthesis. 5. Mild aortic valve sclerosis of a 3-cusp aortic valve. 6. Suggestive of mild elevation of estimated right ventricle systolic pressure. Mild tricuspid regurgitation. 7. Presence of an implantable cardioverter defibrillator (ICD) lead in the right ventricle apex. 8. No pericardial effusion.
[2017-07-14] MEDS: PERCOCET 5MG/325MG TAB PO PRN ×2 (00:43→16:55)
[2017-07-14 01:00] VITALS: BP 138/74
[2017-07-14 05:00] VITALS: BP_SYST 132; BP_SYST 138; BP_DIAS 86; BP_DIAS 92
[2017-07-14 06:00] VITALS: BP 140/85
[2017-07-14 06:43] LABS: INR 2.05
[2017-07-14 06:44] LABS: BASO # 0.1 10^3/uL (0.0-0.2); BASO % 0.6 % (0.0-1.0); EOS # 0.2 10^3/uL (0.0-0.50); EOS % 1.8 % (0.0-3.0); IMMATURE GRANULOCYTE % 0.6 % (0-0); LYMPH # 2.3 10^3/uL (1.5-4.5); LYMPH % 22.3 % (24.0-44.0); MEAN CORPUSCULAR HEMOGLOBIN 31.8 pg (27.0-33.0); MEAN CORPUSCULAR VOLUME 93.3 fl (80.0-96.0); MONO # 1.1 10^3/uL (0.0-0.8); MONO % 10.2 % (0.0-5.0); NEUTROPHILS # 6.7 10^3/uL (1.8-7.7); NEUTROPHILS % 64.5 % (36.0-66.0); PLATELET COUNT, AUTOMATED 195 10^3/uL (150-450); RED CELL DISTRIBUTION WIDTH 14.1 % (11.5-14.5); WHITE BLOOD COUNT 10.4 10^3/uL (4.0-10.0)
[2017-07-14 07:15] LABS: CALCIUM LEVEL 8.2 MG/DL (8.8-10.2); CREATININE FOR GFR 1.48 MG/DL (0.70-1.30); GLOMERULAR FILTRATION RATE 49.6 (>42); MAGNESIUM LEVEL 2.3 MG/DL (1.8-2.4); POTASSIUM SERUM 3.4 MEQ/L (3.5-5.1)
[2017-07-14] MEDS: IPRATROPIUM 0.5MG/ALBUTEROL 2.5MG INH SOL UD 3ML (DUONEB)(J7620) NEB SCH ×3 (07:32→20:23)
[2017-07-14] MEDS: NICOTINE 14 MG/24 HR TRANSDERMAL TD SCH (08:52)
[2017-07-14] MEDS: PANTOPRAZOLE 40MG TAB (PROTONIX) PO SCH (08:53)
[2017-07-14] MEDS: MULTIVITAMINS/MINERALS THERAP 1 TAB PO SCH (08:53)
[2017-07-14] MEDS: buPROPion **XL** TABLET 150MG (WELLBUTRIN XL) PO SCH (08:53)
[2017-07-14] MEDS: VENLAFAXINE **XR** 75MG CAPSULE PO SCH (08:53)
[2017-07-14] MEDS: oxyCODONE 20 MG CR TAB PO SCH ×2 (08:53→20:44)
[2017-07-14] MEDS: DOCUSATE SODIUM 100 MG CAP PO SCH ×2 (08:54→20:46)
[2017-07-14] MEDS: FINASTERIDE 5 MG TAB PO SCH (08:54)
[2017-07-14] MEDS: FOLIC ACID 1 MG TAB PO SCH (08:54)
[2017-07-14] MEDS: FUROSEMIDE 40 MG TAB PO SCH (08:54)
[2017-07-14] MEDS: CARVedilol 6.25 MG TAB PO SCH ×2 (08:55→20:49)
[2017-07-14] MEDS: SPIRONOLACTONE 25 MG TAB PO SCH (13:10)
[2017-07-14 14:00] VITALS: BP 130/60
--- NOTE | 2017-07-14 14:48 | IPNPDOC ---
Date Seen The patient was seen on 07/14/17. Progress Note Subjective: Complains of Back pain and neck pain which he says is chronic and not any worse than usual. His weakness is improving. concerned about some elevation in blood pressure yesterday . Reassured her that it is going to stabilize in another day or two. Explained will be restarting back on the diuretics and will continue to hold the flomax. Patient did mention that all his symptoms began after starting the finasteride about a month ago. Physical Exam: General: Awake, alert, lying in bed and seems to have very little interest in interacting HEENT: Normocephalic, atraumatic, extraocular movements intact CV: Regular rate and rhythm Lungs: Clear to auscultation bilaterally Abd: Soft, nontender, nondistended Extremities: No edema Neuro: Alert and oriented 3, normal speech, 5 out of 5 strength in all extremities Labs and Imaging: As below. Assessment and Plan: 71-year-old male with chronic systolic CHF, chronic kidney disease stage III, bioprosthetic mitral valve, atrial fibrillation status post AICD, chronic back pain on long-term opioids, depression who presents to the emergency department after several days of extreme weakness with falls which his family reports started after he had a nuclear medicine stress test. 1. Weakness with falls secondary to orthostatic hypotension and polypharmacy: I suspect this is multifactorial in nature. Initially, the patient was noted to be orthostatic, which I suspect is contributing to his weakness and falls. We held his home Lasix and spironolactone and lifted his fluid restriction while gently hydrating him, and orthostasis has now resolved. Given his significant CHF, we have restarted his lasix and will restart his spironolactone also. We have also stopped his home Flomax, which I discussed with his commissions analyst Dr. Lopez. PT and OT are working with him. Additionally, his home OxyContin was evidently recently increased from 20 mg twice a day to 40 mg twice a day. We have decreased this back to 20 mg twice a day. We have also stopped his gabapentin, as that is evidently new medication for him. Acetylcholine receptor antibody is pending, but I do not think this represents a myasthenia gravis. Additionally, CT of his C-spine does show central Canal stenosis at C5-C7, however, it shows that this is stable and has not changed since March 2016. The patient does not have any weakness on a supine exam, and he is not having any difficulty urinating, so I do not think that this represents any contributing factors. He states that the surgeon who was operated on his back in the past [place] in [place]. 2. Acute on chronic kidney disease stage III: The patient's baseline creatinine is in the mid ones, but upon presentation, his creatinine was 1.82. As mentioned above, this resolved with gentle hydration and temporarily lifting his fluid restriction and holding his home Lasix and spironolactone. At this point, we will reintroduce his lasix and spironolactone. 3. Chronic systolic CHF: It appears that the patient was initially mildly over diuresed. The last echo in our system is 2 years old and showed an ejection fraction of 20-25% as well as moderate pulmonary hypertension. Updated echo shows EF of 35% , Has AICD in place. . We are now restarting his home lasix and spironolactone after initially holding his diuretics. 4. Atrial fibrillation status post AICD: Continue the patient on his home Coumadin, and follow daily INRs. His INR today is mildly subtherapeutic, so instead of giving him 2.5mg today, we will give him 5mg and recheck INR in the AM. Currently rate controlled, continue home beta lynn. 5. Chronic back pain on mcfp opioids: As mentioned above, we have decreased his OxyContin back to 20 mg by mouth twice a day. He will also have Percocet as needed for breakthrough pain. We have stopped the gabapentin that was recently started. Patient wants to go back to oxycontin 40 mg as he says the 20 mg is not controlled his pain well. 6. BPH: We will continue the patient on his home Proscar, but given his initial orthostasis, we have stopped his Flomax, a change which I have discussed with his commissions analyst Dr. Lopez, who is in agreement. 7. Depression: The patient has evidently been on Effexor and Wellbutrin for a long while. We will continue them both at this time, as the family reports that he has had adverse outcomes to stopping them in the past. We will attempt to adjust his other medications that may cause orthostasis before we change these. The patient still appears very flat, but he denies any suicidal ideation. DVT prophylaxis: Home Coumadin and SCDs Dispo: pending passing PT; VS, I&O, 24H, Franciscoe Vital Signs/I&O Vital Signs Date Time Temp Pulse Resp B/P (MAP) Pulse Ox O2 Delivery O2 Flow Rate FiO2 07/14/17 11:17 Room Air 07/14/17 08:55 72 143/64 07/14/17 08:53 20 07/14/17 06:00 97.9 97 07/12/17 04:30 2.0 I&O- Last 24 Hours up to 6 AM 07/15/17 06:00 Intake Total 240 ml Output Total 800 ml Balance -560 ml Laboratory Data 24H LABS Laboratory Tests 2 07/14/17 06:16: Immature Granulocyte % (Auto) 0.6H, White Blood Count 10.4H, Red Blood Count 4.06L, Hemoglobin 12.9L, Hematocrit 37.9L, Mean Corpuscular Volume 93.3, Mean Corpuscular Hemoglobin 31.8, Mean Corpuscular Hemoglobin Concent 34.0, Red Cell Distribution Width 14.1, Platelet Count 195, Neutrophils (%) (Auto) 64.5, Lymphocytes (%) (Auto) 22.3L, Monocytes (%) (Auto) 10.2H, Eosinophils (%) (Auto ) 1.8, Basophils (%) (Auto) 0.6, Neutrophils # (Auto) 6.7, Lymphocytes # (Auto) 2.3, Monocytes # (Auto) 1.1H, Eosinophils # (Auto) 0.2, Basophils # (Auto) 0.1, Immature Granulocyte # (Auto) 0.1H, Nucleated Red Blood Cells % (auto) 0.0, Prothrombin Time 23.9H, Prothromb Time International Ratio 2.05, Anion Gap 7L, Glomerular Filtration Rate 49.6, Blood Urea Nitrogen 28H, Creatinine 1.48H, Sodium Level 140, Potassium Level 3.4L, Chloride Level 107, Carbon Dioxide Level 26, Calcium Level 8.2L, Magnesium Level 2.3, C-Reactive Protein, Quantitative 0.72H CBC/BMP Laboratory Tests 07/14/17 06:16 Red Blood Count 4.06 L, Mean Corpuscular Volume 93.3, Mean Corpuscular Hemoglobin 31.8, Mean Corpuscular Hemoglobin Concent 34.0, Red Cell Distribution Width 14.1, Neutrophils (%) (Auto) 64.5, Lymphocytes (%) (Auto) 22.3 L, Monocytes (%) (Auto) 10.2 H, Eosinophils (%) (Auto) 1.8, Basophils (%) ( Auto) 0.6, Neutrophils # (Auto) 6.7, Lymphocytes # (Auto) 2.3, Monocytes # (Auto ) 1.1 H, Eosinophils # (Auto) 0.2, Basophils # (Auto) 0.1, Calcium Level 8.2 L Microbiology Microbiology 07/11/17 Blood Culture - Preliminary, Resulted No Growth after 48 hours. All Specime... 07/11/17 Blood Culture - Preliminary, Resulted No Growth after 48 hours. All Specime... 07/11/17 Urine Culture - Final, Complete LAURA ROMAN MD Jul 14, 2017 14:48
[2017-07-14] MEDS: WARFARIN SOD 5 MG TAB PO SCH (16:54)
[2017-07-14 19:00] VITALS: BP_SYST 118; BP_SYST 128; BP_SYST 142; BP_DIAS 56; BP_DIAS 68; BP_DIAS 78
[2017-07-14] MEDS: zolPIDEM CR 6.25MG TABLET (AMBIEN CR) PO SCH (20:44)
[2017-07-14] MEDS: ATORVASTATIN 20 MG TAB PO SCH (20:45)
[2017-07-14] MEDS: ASPIRIN 81 MG ENTERIC TAB PO SCH (20:46)
[2017-07-14 22:00] VITALS: BP 142/60
[2017-07-15 03:00] VITALS: BP_SYST 104; BP_SYST 124; BP_SYST 130; BP_DIAS 66; BP_DIAS 76; BP_DIAS 86
[2017-07-15 06:00] VITALS: BP 130/85
[2017-07-15 07:27] LABS: BASO # 0.1 10^3/uL (0.0-0.2); BASO % 0.6 % (0.0-1.0); EOS # 0.2 10^3/uL (0.0-0.50); EOS % 2.2 % (0.0-3.0); IMMATURE GRANULOCYTE % 0.5 % (0-0); LYMPH # 2.2 10^3/uL (1.5-4.5); LYMPH % 19.7 % (24.0-44.0); MEAN CORPUSCULAR HEMOGLOBIN 31.8 pg (27.0-33.0); MEAN CORPUSCULAR HGB CONC 34.2 g/dl (32.0-36.5); MONO % 9.4 % (0.0-5.0); NEUTROPHILS # 7.4 10^3/uL (1.8-7.7); NEUTROPHILS % 67.6 % (36.0-66.0); PLATELET COUNT, AUTOMATED 227 10^3/uL (150-450); RED CELL DISTRIBUTION WIDTH 13.9 % (11.5-14.5)
[2017-07-15 07:38] LABS: INR 2.41
[2017-07-15 07:57] LABS: CALCIUM LEVEL 8.7 MG/DL (8.8-10.2); CREATININE FOR GFR 1.56 MG/DL (0.70-1.30); GLOMERULAR FILTRATION RATE 46.7 (>42); MAGNESIUM LEVEL 2.3 MG/DL (1.8-2.4); POTASSIUM SERUM 4.1 MEQ/L (3.5-5.1)
[2017-07-15 08:13] LABS: PLT CLUMPS? POS FLAG; POS COUNT POS FLAG
[2017-07-15 08:14] LABS: ADD MANUAL DIFFER NO; DIFF SLIDE NUMBER 27
[2017-07-15] MEDS: IPRATROPIUM 0.5MG/ALBUTEROL 2.5MG INH SOL UD 3ML (DUONEB)(J7620) NEB SCH (08:52)
[2017-07-15] MEDS: MULTIVITAMINS/MINERALS THERAP 1 TAB PO SCH (09:00)
[2017-07-15] MEDS: VENLAFAXINE **XR** 75MG CAPSULE PO SCH (09:01)
[2017-07-15] MEDS: FUROSEMIDE 40 MG TAB PO SCH (09:01)
[2017-07-15] MEDS: oxyCODONE 20 MG CR TAB PO SCH (09:01)
[2017-07-15 09:02] VITALS: BP 130/85
[2017-07-15] MEDS: PANTOPRAZOLE 40MG TAB (PROTONIX) PO SCH (09:02)
[2017-07-15] MEDS: DOCUSATE SODIUM 100 MG CAP PO SCH (09:02)
[2017-07-15] MEDS: SPIRONOLACTONE 25 MG TAB PO SCH (09:02)
[2017-07-15] MEDS: FOLIC ACID 1 MG TAB PO SCH (09:02)
[2017-07-15] MEDS: CARVedilol 6.25 MG TAB PO SCH (09:02)
[2017-07-15] MEDS: NICOTINE 14 MG/24 HR TRANSDERMAL TD SCH (09:03)
[2017-07-15] MEDS: FINASTERIDE 5 MG TAB PO SCH (09:03)
[2017-07-15] MEDS: buPROPion **XL** TABLET 150MG (WELLBUTRIN XL) PO SCH (11:43)
[2017-07-15] MEDS: PERCOCET 5MG/325MG TAB PO PRN (11:45)
--- NOTE | 2017-07-17 16:41 | DSES ---
DATE OF ADMISSION: 07/13/2017 DATE OF DISCHARGE: 07/15/2017 PRIMARY CARE PROVIDER: Derek Ho MD DISCHARGE DIAGNOSES: Orthostatic hypotension possibly related to medications, Flomax, diuretics and opiates. Weakness and falls attributed to orthostatic hypotension. Chronic kidney disease, stage III. Chronic systolic congestive heart failure with ejection fraction (EF) of 35%. Moderate pulmonary hypertension. Has automatic implantable cardioverter-defibrillator (AICD) in place. Atrial fibrillation, rate controlled on Coumadin. Chronic back pain with history of four back surgeries in the neck as well as in the lumbar region on chronic usp opiates. Benign prostatic hypertrophy (BPH). Depression. Spinal canal stenosis at C5 to C7 level, which is unchanged from March 2016. Bioprosthetic mitral valve replacement in 2013. Peripheral vascular disease. History of carotid endarterectomy. DISCHARGE MEDICATIONS: - aspirin 81 mg daily - atorvastatin 40 mg daily - bupropion 150 mg daily - Coreg 6.25 mg by mouth twice a day - Colace 100 mg by mouth twice a day - finasteride 5 mg daily - folic acid 1 mg daily - Lasix 40 mg daily - spironolactone 25 mg daily - multivitamins 1 tablet daily - oxycodone 40 mg tablet, 1 tablet by mouth twice a day - pantoprazole 40 mg by mouth daily - venlafaxine 225 mg by mouth daily - warfarin 5 mg by mouth four times a week - warfarin 2.5 mg by mouth three times a week - Zolpidem 6.25 mg at bedtime HOSPITAL COURSE: This is a 71-year-old male presented to the hospital with progressive weakness and dizziness going on for 2 to 3 weeks, worse over the past three days with loss of strength in the legs and tendency to fall. The patient's family described that this severe worsening started after his nuclear test with the break up worker. He had a fall the next day because of his weakness of legs. He had another fall the day after. In the emergency room the patient was found to have orthostatic hypotension and his symptoms were felt to be related to them. The orthostatic hypotension was felt to be related to multiple medications, decreasing oral intake and continuation of regular dose of diuretics resulting in possibly mild volume depletion. The patient's most recent medication changes included the patient was started on Finasteride 1 month ago. His OxyContin was increased from 20 mg twice a day to 40 mg twice a day about 2 weeks ago. He was also recently started on gabapentin, however, we do not see that in his list of home medications. Initially the patient was given gentle hydration. The patient' s diuretics were held, also patient's Flomax was discontinued. Gabapentin was discontinued and Oxycodone dosage was reduced to 20 twice a day as before. After about 36 hours of hydration, the patient's orthostatic changes resolved. The patient was slowly restarted back on his diuretics which he seemed to tolerate. The patient requested his oxycodone to be increased to 40 twice a day as the 20 mg were not controlling his pain. So on discharge his home dosage of oxycodone was continued. The patient was seen by physical therapist during hospitalization and on the day of discharge was felt to be at his baseline functional status. On the day of discharge, the patient did not have any complaints. His vitals were stable and he was at his baseline functional status. PHYSICAL EXAMINATION: VITAL SIGNS: Temperature 98, pulse 71, respiratory rate 18, blood pressure 130.85, pulse oximetry 97% on room air. GENERAL: The patient awake, alert and oriented times three. Sitting up in bed, in no acute distress. HEENT: Normocephalic, atraumatic. Moist mucous membranes. Anicteric eyes. CHEST: Clear to auscultation. CARDIOVASCULAR: S1, S2, regular. No rub, murmur or gallop. ABDOMEN: Soft, nontender. Bowel sounds present. EXTREMITIES: No edema. LABORATORY DATA: WBC 11, hemoglobin 13.7, platelet 227. Sodium 140, potassium 4.1, chloride 107, bicarbonate 29, BUN 27, creatinine 1.56. Calcium 8.7, magnesium 2.3, CRP 0.56. Acetylcholine receptor antibody normal. Urinalysis: Clean. INR 2.4. Blood cultures negative. Echocardiogram: Shows an ejection fraction (EF) of 35% with regional wall motion abnormalities. Normally functioning mitral valve bioprosthesis. AICD in place. No pericardial effusion. Mildly elevated right ventricular pressure with mild tricuspid regurgitation. 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 No acute intracranial abnormality. CT of the cervical spine showed extension fusion from C2 to C5 level. Central canal stenosis particularly at C5 level, unchanged from prior study. Central canal stenosis also seen at C5-C6 and C6-C7 with degenerative spondylosis and bilateral neural foraminal narrowing. These findings are stable compared to the study in 2016. DISPOSITION: The patient is discharged home in stable condition. DISCHARGE INSTRUCTIONS: The patient to followup with primary care provider in 1 week. The patient to followup with Dr. Lopez as per outpatient appointment in 1 week. Low fat, low cholesterol diet. Fluid restriction 1.5 liters. Activity as tolerated. MTDD
== END 2017-07-15 12:23 | disposition home or self-care (01) | DRG 204 ==
LOC: EDBD 10:48 → M ED 10:48 → M PCU 15:58 → INTOOBSV 15:58 → M ED 17:40 → OBSVTOIN 07-13 16:36 → M MSPAV 07-13 20:02
PROVIDERS: ADMIT Internal Medicine; ATTEND Internal Medicine Nephrology
DX: I95.1 Orthostatic hypotension (principal); I13.0 Hypertensive heart and chronic kidney disease with heart failure and stage 1 through stage 4 chronic kidney disease, or unspecified chronic kidney disease; I50.22 Chronic systolic (congestive) heart failure; I48.91 Unspecified atrial fibrillation; J44.9 Chronic obstructive pulmonary disease, unspecified; N18.3 Chronic kidney disease, stage 3 (moderate); E78.5 Hyperlipidemia, unspecified; M54.9 Dorsalgia, unspecified; I73.9 Peripheral vascular disease, unspecified; T40.2X5A Adverse effect of other opioids, initial encounter; T43.8X5A Adverse effect of other psychotropic drugs, initial encounter; F17.210 Nicotine dependence, cigarettes, uncomplicated; K21.9 Gastro-esophageal reflux disease without esophagitis; M62.81 Muscle weakness (generalized); F32.9 Major depressive disorder, single episode, unspecified; N40.0 Benign prostatic hyperplasia without lower urinary tract symptoms; Z95.2 Presence of prosthetic heart valve; Z95.810 Presence of automatic (implantable) cardiac defibrillator; Z79.82 Long term (current) use of aspirin; Z79.891 Long term (current) use of opiate analgesic; Z79.01 Long term (current) use of anticoagulants; Z79.899 Other long term (current) drug therapy; Z88.5 Allergy status to narcotic agent; Z88.8 Allergy status to other drugs, medicaments and biological substances

== ENCOUNTER 2018-06-03 14:21 | Inpatient (IN) | payer OTHER, MEDICARE ==
[~2018-06-03 14:21] MED LIST changes: -AMLO10TA2 PO; -ASPI81TA24 PO; -CAPT125TA PO; -CARV6.25 PO; -CORICAP PO; -DOCU10CA PO; -EFFE150C PO; -EFFE75CA75 PO; -FINA5TAB2 PO; -FLOM5CAP PO; -FLUC10TA PO; -FOLI1TAB4 PO; -FURO20TA2 PO; -FURO40TA2 PO; -LASI40TA PO; -LIPI20TA PO; -LISI10TA4 PO; -LISI40TAB PO; -METO-346 PO; -MORP15TA2 PO; -MORP60TA PO; -MSIR30TA PO; -OXYC1TAB23 PO; -PANT40TA2 PO; -PLAV1TAB2 PO; -SPIR25TA2 PO; -STOO100C PO; -TYLE325T5 PO; -VITA200016 PO; -WARF-23 PO; -WARF4TAB51 PO; +guaiFENesin SYRUP 200 MG/10 ML UDC PO
[2018-06-03] MEDS: IPRATROPIUM 0.5MG/ALBUTEROL 2.5MG INH SOL UD 3ML (DUONEB)(J7620) NEB (15:34)
[2018-06-03] MEDS: NYSTATIN 500,000 U/5 ML SUSP UDC SS ×2 (18:17→20:25)
[2018-06-03] MEDS: oxyCODONE 20 MG CR TAB PO (18:18)
[2018-06-03] MEDS: ACETAMINOPHEN 325 MG TAB PO ×2 (18:18→20:26)
[2018-06-03] MEDS: WARFARIN SOD 5 MG TAB PO (18:19)
[2018-06-03] MEDS: buPROPion 100 MG TAB PO ×2 (18:19→20:25)
[2018-06-03] MEDS: QUEtiapine FUMARATE 25 MG TAB PO (20:25)
[2018-06-03] MEDS: DOCUSATE SOD LIQ 100MG/10ML UDC PO (20:25)
[2018-06-03] MEDS: SENNA 8.6 MG TAB (SENOKOT) PO (20:25)
[2018-06-03] MEDS: CARVedilol 6.25 MG TAB PO (20:26)
[2018-06-03] MEDS: ATORVASTATIN 20 MG TAB PO (20:26)
[2018-06-03] MEDS: oxyCODONE 5MG TAB PO (20:33)
[2018-06-03] MEDS ORDERED: ATORVASTATIN 20 MG TAB PO (21:00)
[2018-06-04] MEDS: oxyCODONE 5MG TAB PO ×3 (00:59→20:34)
[2018-06-04 06:42] LABS: HEMATOCRIT 37.6 % (42.0-52.0); HEMOGLOBIN 12.7 g/dl (13.5-17.5); MEAN CORPUSCULAR HGB CONC 33.8 g/dl (32.0-36.5); MEAN CORPUSCULAR VOLUME 88.9 fl (80.0-96.0); PLATELET COUNT, AUTOMATED 229 10^3/uL (150-450); RED BLOOD COUNT 4.23 10^6/uL (4.30-6.10); RED CELL DISTRIBUTION WIDTH 14.2 % (11.5-14.5); WHITE BLOOD COUNT 16.9 10^3/uL (4.0-10.0)
[2018-06-04 06:45] LABS: IONIZED CALCIUM 4.4 MG/DL (4.5-5.3)
[2018-06-04 06:55] LABS: PROTHROMBIN TIME 50.8 SECONDS (12.1-14.4)
[2018-06-04] MEDS: oxyCODONE 20 MG CR TAB PO ×2 (06:56→18:01)
[2018-06-04 07:01] LABS: INR 5.41
[2018-06-04 07:12] LABS: ALBUMIN 2.6 GM/DL (3.2-5.2); ALBUMIN/GLOBULIN RATIO 0.54 (1.00-1.93); ALKALINE PHOSPHATASE 310 U/L (45-117); ALT/SGPT 88 U/L (12-78); ANION GAP 12 MEQ/L (8-16); AST/SGOT 54 U/L (7-37); BILIRUBIN,TOTAL 0.8 MG/DL (0.2-1.0); BLOOD UREA NITROGEN 42 MG/DL (7-18); CALCIUM LEVEL 8.7 MG/DL (8.8-10.2); CARBON DIOXIDE LEVEL 23 MEQ/L (21-32); CHLORIDE LEVEL 107 MEQ/L (98-107); CREATININE FOR GFR 1.67 MG/DL (0.70-1.30); GLUCOSE, FASTING 130 MG/DL (70-100); NT-PRO BNP 6647 PG/ML (<125); POTASSIUM SERUM 3.5 MEQ/L (3.5-5.1); SODIUM LEVEL 142 MEQ/L (136-145); TOTAL PROTEIN 7.4 GM/DL (6.4-8.2); TROPONIN I 0.04 NG/ML (< 0.10)
[2018-06-04] MEDS: CALCIUM CARBONATE 500 MG CHEW U/D PO ×3 (08:00→18:00)
[2018-06-04] MEDS: NYSTATIN 500,000 U/5 ML SUSP UDC SS ×4 (08:36→20:35)
[2018-06-04] MEDS: CARVedilol 6.25 MG TAB PO ×2 (08:36→20:35)
[2018-06-04] MEDS: FINASTERIDE 5 MG TAB PO (08:36)
[2018-06-04] MEDS: buPROPion 100 MG TAB PO ×3 (08:36→20:35)
[2018-06-04] MEDS: PANTOPRAZOLE 40MG TAB (PROTONIX) PO (08:36)
[2018-06-04] MEDS: ACETAMINOPHEN 325 MG TAB PO ×3 (08:37→20:33)
[2018-06-04] MEDS: SPIRONOLACTONE 25 MG TAB PO (08:37)
[2018-06-04] MEDS: NICOTINE 21MG/24HR 1 EA TRANSDERMAL TD (08:37)
[2018-06-04] MEDS: PREVNAR 13 VACCINE SYRINGE (CPT CODE:90670) IM (09:00)
[2018-06-04 09:45] LABS: MAGNESIUM LEVEL 2.1 MG/DL (1.8-2.4)
[2018-06-04] MEDS: IPRATROPIUM 0.5MG/ALBUTEROL 2.5MG INH SOL UD 3ML (DUONEB)(J7620) NEB ×3 (11:03→16:00)
[2018-06-04] MEDS ORDERED: CALCIUM CARBONATE 500 MG CHEW U/D PO (12:30)
[2018-06-04] MEDS: ASPIRIN 81 MG ENTERIC TAB PO (13:25)
[2018-06-04] MEDS: AMPICILLIN SOD/SULBACTAM SOD 1.5 GM in D5W MINI-BAG PLUS 50 ML IV ×2 (13:25→20:36)
[2018-06-04 16:00] LABS: KETONE, URINE AUTO RFX NEGATIVE (NEGATIVE); LEUKOCYTE ESTERASE UR AUTO RFX NEGATIVE (NEGATIVE); MUCUS, URINE RFX SMALL (NEGATIVE); NITRITE, URINE AUTO RFX NEGATIVE (NEGATIVE); RBC, URINE AUTO RFX 3 /HPF (0-3); SPECIFIC GRAVITY UR AUTO RFX 1.024 (1.002-1.035); SQUAM EPITHELIAL CELL UR AURFX 0 /HPF (0-6); WBC, URINE AUTO RFX 3 /HPF (0-3)
[2018-06-04 16:04] LABS: CK-MB VALUE MASS 1.7 NG/ML (<3.6); CPK CREATINE PHOSPHOKINASE 74 U/L (39-308); MB/CK RELATIVE INDEX 2.29 (< OR =4); TROPONIN I 0.06 NG/ML (< 0.10)
[2018-06-04 16:05] LABS: FERRITIN 211 NG/ML (26-388); IRON (FE) 22 UG/DL (65-175); TOTAL IRON BINDING CAPACITY 221 UG/DL (250-450)
[2018-06-04 16:21] LABS: VITAMIN B12 LEVEL 877 PG/ML (247-911)
[2018-06-04 16:22] LABS: FOLATE > 24.0 NG/ML (>5.4)
[2018-06-04] MEDS: SENNA 8.6 MG TAB (SENOKOT) PO (20:33)
[2018-06-04] MEDS: ATORVASTATIN 20 MG TAB PO (20:35)
[2018-06-04] MEDS: QUEtiapine FUMARATE 25 MG TAB PO (20:35)
[2018-06-04] MEDS: DOCUSATE SOD LIQ 100MG/10ML UDC PO (20:35)
[2018-06-04 20:57] LABS: CK-MB VALUE MASS 2.1 NG/ML (<3.6); CPK CREATINE PHOSPHOKINASE 83 U/L (39-308); MB/CK RELATIVE INDEX 2.53 (< OR =4)
[2018-06-05 01:46] LABS: CK-MB VALUE MASS 1.8 NG/ML (<3.6); CPK CREATINE PHOSPHOKINASE 66 U/L (39-308); MB/CK RELATIVE INDEX 2.72 (< OR =4); TROPONIN I 0.12 NG/ML (< 0.10)
[2018-06-05] MEDS: AMPICILLIN SOD/SULBACTAM SOD 1.5 GM in D5W MINI-BAG PLUS 50 ML IV ×4 (02:38→20:19)
[2018-06-05] MEDS: oxyCODONE 20 MG CR TAB PO ×2 (06:32→18:27)
[2018-06-05 06:44] LABS: BASO % 0.3 % (0.0-1.0); EOS # 0.1 10^3/uL (0.0-0.50); EOS % 1.1 % (0.0-3.0); HEMATOCRIT 39.7 % (42.0-52.0); HEMOGLOBIN 13.5 g/dl (13.5-17.5); IMMATURE GRANULOCYTE % 0.4 % (0-3.0); LYMPH # 1.5 10^3/uL (1.5-4.5); LYMPH % 12.5 % (24.0-44.0); MEAN CORPUSCULAR HEMOGLOBIN 30.3 pg (27.0-33.0); MEAN CORPUSCULAR VOLUME 89.2 fl (80.0-96.0); MONO # 1.4 10^3/uL (0.0-0.8); MONO % 11.6 % (0.0-5.0); NEUTROPHILS % 74.1 % (36.0-66.0); PLATELET COUNT, AUTOMATED 240 10^3/uL (150-450); RED BLOOD COUNT 4.45 10^6/uL (4.30-6.10); RED CELL DISTRIBUTION WIDTH 14.1 % (11.5-14.5); WHITE BLOOD COUNT 12.2 10^3/uL (4.0-10.0)
[2018-06-05 07:17] LABS: PROTHROMBIN TIME 75.9 SECONDS (12.1-14.4)
[2018-06-05 07:22] LABS: ALBUMIN 2.6 GM/DL (3.2-5.2); ALBUMIN/GLOBULIN RATIO 0.48 (1.00-1.93); ALKALINE PHOSPHATASE 305 U/L (45-117); ALT/SGPT 73 U/L (12-78); ANION GAP 8 MEQ/L (8-16); AST/SGOT 46 U/L (7-37); BILIRUBIN,TOTAL 0.7 MG/DL (0.2-1.0); BLOOD UREA NITROGEN 37 MG/DL (7-18); CARBON DIOXIDE LEVEL 24 MEQ/L (21-32); CHLORIDE LEVEL 106 MEQ/L (98-107); CREATININE FOR GFR 1.51 MG/DL (0.70-1.30); GLOMERULAR FILTRATION RATE 48.3 (>42); GLUCOSE, FASTING 91 MG/DL (70-100); POTASSIUM SERUM 3.8 MEQ/L (3.5-5.1); SODIUM LEVEL 138 MEQ/L (136-145)
[2018-06-05 07:42] LABS: INR 8.98
[2018-06-05] MEDS: CALCIUM CARBONATE 500 MG CHEW U/D PO ×3 (08:02→17:24)
[2018-06-05] MEDS: IPRATROPIUM 0.5MG/ALBUTEROL 2.5MG INH SOL UD 3ML (DUONEB)(J7620) NEB ×3 (08:09→15:58)
[2018-06-05] MEDS: PANTOPRAZOLE 40MG TAB (PROTONIX) PO (09:31)
[2018-06-05] MEDS: CARVedilol 6.25 MG TAB PO ×2 (09:31→20:23)
[2018-06-05] MEDS: NYSTATIN 500,000 U/5 ML SUSP UDC SS ×4 (09:31→20:19)
[2018-06-05] MEDS: PHYTONADIONE 5 MG TAB PO (09:32)
[2018-06-05] MEDS: ACETAMINOPHEN 325 MG TAB PO ×3 (09:32→20:24)
[2018-06-05] MEDS: buPROPion 100 MG TAB PO ×3 (09:32→20:23)
[2018-06-05] MEDS: NICOTINE 21MG/24HR 1 EA TRANSDERMAL TD (09:32)
[2018-06-05] MEDS: FINASTERIDE 5 MG TAB PO (09:33)
[2018-06-05] MEDS: ASPIRIN 81 MG ENTERIC TAB PO (09:33)
[2018-06-05] MEDS: SPIRONOLACTONE 25 MG TAB PO (09:33)
[2018-06-05 09:40] LABS: CK-MB VALUE MASS 1.8 NG/ML (<3.6); CPK CREATINE PHOSPHOKINASE 79 U/L (39-308); MB/CK RELATIVE INDEX 2.27 (< OR =4); TROPONIN I 0.09 NG/ML (< 0.10)
[2018-06-05] MEDS: oxyCODONE 5MG TAB PO (09:50)
[2018-06-05] MEDS: SLF 3 ML SYR IV ×2 (14:00→20:25)
[2018-06-05] MEDS: BISACODYL 10 MG SUPP PR (19:54)
[2018-06-05] MEDS: ATORVASTATIN 20 MG TAB PO (20:20)
[2018-06-05] MEDS: SENNA 8.6 MG TAB (SENOKOT) PO (20:20)
[2018-06-05] MEDS: DOCUSATE SOD LIQ 100MG/10ML UDC PO (20:20)
[2018-06-05] MEDS: QUEtiapine FUMARATE 25 MG TAB PO (20:24)
[2018-06-06] MEDS: AMPICILLIN SOD/SULBACTAM SOD 1.5 GM in D5W MINI-BAG PLUS 50 ML IV ×4 (02:08→19:49)
[2018-06-06] MEDS: IPRATROPIUM 0.5MG/ALBUTEROL 2.5MG INH SOL UD 3ML (DUONEB)(J7620) NEB ×4 (02:11→15:12)
[2018-06-06] MEDS: SLF 3 ML SYR IV ×3 (06:10→20:32)
[2018-06-06] MEDS: oxyCODONE 20 MG CR TAB PO ×2 (06:10→18:29)
[2018-06-06 07:08] LABS: HEMATOCRIT 39.1 % (42.0-52.0); HEMOGLOBIN 12.9 g/dl (13.5-17.5); MEAN CORPUSCULAR HEMOGLOBIN 29.8 pg (27.0-33.0); MEAN CORPUSCULAR VOLUME 90.3 fl (80.0-96.0); PLATELET COUNT, AUTOMATED 254 10^3/uL (150-450); RED BLOOD COUNT 4.33 10^6/uL (4.30-6.10); RED CELL DISTRIBUTION WIDTH 13.9 % (11.5-14.5); WHITE BLOOD COUNT 10.8 10^3/uL (4.0-10.0)
[2018-06-06 07:20] LABS: INR 1.74; PROTHROMBIN TIME 20.7 SECONDS (12.1-14.4)
[2018-06-06 07:29] LABS: ALBUMIN 2.4 GM/DL (3.2-5.2); ALBUMIN/GLOBULIN RATIO 0.46 (1.00-1.93); ALKALINE PHOSPHATASE 293 U/L (45-117); ALT/SGPT 66 U/L (12-78); ANION GAP 10 MEQ/L (8-16); AST/SGOT 55 U/L (7-37); BILIRUBIN,TOTAL 0.8 MG/DL (0.2-1.0); BLOOD UREA NITROGEN 37 MG/DL (7-18); CALCIUM LEVEL 8.6 MG/DL (8.8-10.2); CARBON DIOXIDE LEVEL 24 MEQ/L (21-32); CHLORIDE LEVEL 108 MEQ/L (98-107); CREATININE FOR GFR 1.45 MG/DL (0.70-1.30); GLOMERULAR FILTRATION RATE 50.6 (>42); GLUCOSE, FASTING 96 MG/DL (70-100); POTASSIUM SERUM 3.5 MEQ/L (3.5-5.1); SODIUM LEVEL 142 MEQ/L (136-145); TOTAL PROTEIN 7.6 GM/DL (6.4-8.2)
[2018-06-06] MEDS: NICOTINE 21MG/24HR 1 EA TRANSDERMAL TD (08:52)
[2018-06-06] MEDS: CALCIUM CARBONATE 500 MG CHEW U/D PO ×3 (08:53→18:29)
[2018-06-06] MEDS: SPIRONOLACTONE 25 MG TAB PO (08:53)
[2018-06-06] MEDS: PANTOPRAZOLE 40MG TAB (PROTONIX) PO (08:53)
[2018-06-06] MEDS: ASPIRIN 81 MG ENTERIC TAB PO (08:53)
[2018-06-06] MEDS: ACETAMINOPHEN 325 MG TAB PO ×3 (08:54→20:31)
[2018-06-06] MEDS: FINASTERIDE 5 MG TAB PO (08:54)
[2018-06-06] MEDS: buPROPion 100 MG TAB PO ×3 (08:54→20:32)
[2018-06-06] MEDS: CARVedilol 6.25 MG TAB PO ×2 (08:55→20:32)
[2018-06-06] MEDS: NYSTATIN 500,000 U/5 ML SUSP UDC SS ×4 (08:55→20:31)
[2018-06-06] MEDS: oxyCODONE 5MG TAB PO ×2 (08:56→21:06)
[2018-06-06] MEDS: WARFARIN SOD 2 MG TAB PO (16:40)
[2018-06-06] MEDS: QUEtiapine FUMARATE 25 MG TAB PO (20:32)
[2018-06-06] MEDS: SENNA 8.6 MG TAB (SENOKOT) PO (20:32)
[2018-06-06] MEDS: ATORVASTATIN 20 MG TAB PO (20:32)
[2018-06-06] MEDS: DOCUSATE SOD LIQ 100MG/10ML UDC PO (21:05)
[2018-06-07] MEDS: IPRATROPIUM 0.5MG/ALBUTEROL 2.5MG INH SOL UD 3ML (DUONEB)(J7620) NEB ×3 (00:23→17:38)
[2018-06-07] MEDS: AMPICILLIN SOD/SULBACTAM SOD 1.5 GM in D5W MINI-BAG PLUS 50 ML IV ×4 (01:09→20:48)
[2018-06-07] MEDS: SLF 3 ML SYR IV ×4 (01:10→22:00)
[2018-06-07] MEDS: oxyCODONE 20 MG CR TAB PO ×2 (06:05→18:04)
[2018-06-07 07:51] LABS: MEAN CORPUSCULAR HGB CONC 33.3 g/dl (32.0-36.5); MEAN CORPUSCULAR VOLUME 89.9 fl (80.0-96.0); PLATELET COUNT, AUTOMATED 289 10^3/uL (150-450); RED BLOOD COUNT 4.34 10^6/uL (4.30-6.10); RED CELL DISTRIBUTION WIDTH 13.9 % (11.5-14.5); WHITE BLOOD COUNT 13.6 10^3/uL (4.0-10.0)
[2018-06-07] MEDS: ACETAMINOPHEN 325 MG TAB PO ×3 (08:07→20:49)
[2018-06-07] MEDS: ASPIRIN 81 MG ENTERIC TAB PO (08:07)
[2018-06-07] MEDS: FINASTERIDE 5 MG TAB PO (08:07)
[2018-06-07] MEDS: SPIRONOLACTONE 25 MG TAB PO (08:07)
[2018-06-07] MEDS: NYSTATIN 500,000 U/5 ML SUSP UDC SS ×4 (08:07→20:50)
[2018-06-07 08:08] LABS: INR 1.47; PROTHROMBIN TIME 18.1 SECONDS (12.1-14.4)
[2018-06-07] MEDS: PANTOPRAZOLE 40MG TAB (PROTONIX) PO (08:08)
[2018-06-07] MEDS: CARVedilol 6.25 MG TAB PO ×2 (08:08→20:50)
[2018-06-07] MEDS: buPROPion 100 MG TAB PO ×3 (08:08→20:49)
[2018-06-07] MEDS: NICOTINE 21MG/24HR 1 EA TRANSDERMAL TD (08:08)
[2018-06-07] MEDS: CALCIUM CARBONATE 500 MG CHEW U/D PO ×3 (08:08→18:04)
[2018-06-07 08:16] LABS: ALBUMIN 2.4 GM/DL (3.2-5.2); ALBUMIN/GLOBULIN RATIO 0.47 (1.00-1.93); ALKALINE PHOSPHATASE 287 U/L (45-117); ALT/SGPT 66 U/L (12-78); ANION GAP 9 MEQ/L (8-16); AST/SGOT 61 U/L (7-37); BILIRUBIN,TOTAL 0.6 MG/DL (0.2-1.0); BLOOD UREA NITROGEN 31 MG/DL (7-18); CARBON DIOXIDE LEVEL 25 MEQ/L (21-32); CHLORIDE LEVEL 109 MEQ/L (98-107); CREATININE FOR GFR 1.54 MG/DL (0.70-1.30); GLOMERULAR FILTRATION RATE 47.2 (>42); GLUCOSE, FASTING 102 MG/DL (70-100); POTASSIUM SERUM 3.4 MEQ/L (3.5-5.1); SODIUM LEVEL 143 MEQ/L (136-145); TOTAL PROTEIN 7.5 GM/DL (6.4-8.2)
[2018-06-07] MEDS: POTASSIUM CHL PWD 20 MEQ PACKET PO (13:03)
[2018-06-07] MEDS: oxyCODONE 5MG TAB PO ×2 (13:03→20:49)
[2018-06-07 13:50] LABS: HEPATITIS B SURFACE ANTIGEN NEGATIVE (NEGATIVE)
[2018-06-07 14:16] LABS: HEPATITIS B CORE ANTIBODY IGM NEGATIVE (NEGATIVE)
[2018-06-07] MEDS: METHYLNALTREXONE BROMIDE 12 MG/0.6 ML VIAL (RELISTOR) SC (14:17)
[2018-06-07 14:20] LABS: HEPATITIS A ANTIBODY IGM NEGATIVE (NEGATIVE)
[2018-06-07] MEDS: WARFARIN SOD 4 MG TAB PO (16:58)
[2018-06-07] MEDS: ATORVASTATIN 20 MG TAB PO (20:49)
[2018-06-07] MEDS: QUEtiapine FUMARATE 25 MG TAB PO (20:49)
[2018-06-07] MEDS: DOCUSATE SOD LIQ 100MG/10ML UDC PO (20:50)
[2018-06-07] MEDS: SENNA 8.6 MG TAB (SENOKOT) PO (20:50)
[2018-06-08] MEDS: IPRATROPIUM 0.5MG/ALBUTEROL 2.5MG INH SOL UD 3ML (DUONEB)(J7620) NEB ×4 (00:46→20:38)
[2018-06-08] MEDS: AMPICILLIN SOD/SULBACTAM SOD 1.5 GM in D5W MINI-BAG PLUS 50 ML IV ×4 (02:15→20:55)
[2018-06-08] MEDS: oxyCODONE 5MG TAB PO ×3 (03:00→20:56)
[2018-06-08] MEDS: SLF 3 ML SYR IV ×4 (06:38→20:57)
[2018-06-08] MEDS: oxyCODONE 20 MG CR TAB PO ×2 (06:38→18:05)
[2018-06-08] MEDS: METHOCARBAMOL 750 MG TAB PO (08:30)
[2018-06-08] MEDS: SPIRONOLACTONE 25 MG TAB PO (08:30)
[2018-06-08] MEDS: ACETAMINOPHEN 325 MG TAB PO ×3 (08:30→20:57)
[2018-06-08] MEDS: CARVedilol 6.25 MG TAB PO ×2 (08:31→20:56)
[2018-06-08] MEDS: buPROPion 100 MG TAB PO ×3 (08:31→20:56)
[2018-06-08] MEDS: CALCIUM CARBONATE 500 MG CHEW U/D PO ×3 (08:31→18:05)
[2018-06-08] MEDS: NICOTINE 21MG/24HR 1 EA TRANSDERMAL TD (08:31)
[2018-06-08] MEDS: FINASTERIDE 5 MG TAB PO (08:31)
[2018-06-08] MEDS: PANTOPRAZOLE 40MG TAB (PROTONIX) PO (08:31)
[2018-06-08] MEDS: NYSTATIN 500,000 U/5 ML SUSP UDC SS ×4 (08:31→20:55)
[2018-06-08] MEDS: ASPIRIN 81 MG ENTERIC TAB PO (08:31)
[2018-06-08] MEDS: METHYLNALTREXONE BROMIDE 12 MG/0.6 ML VIAL (RELISTOR) SC (08:32)
[2018-06-08 10:17] LABS: HEMATOCRIT 37.9 % (42.0-52.0); HEMOGLOBIN 12.8 g/dl (13.5-17.5); MEAN CORPUSCULAR HEMOGLOBIN 29.7 pg (27.0-33.0); MEAN CORPUSCULAR HGB CONC 33.8 g/dl (32.0-36.5); MEAN CORPUSCULAR VOLUME 87.9 fl (80.0-96.0); PLATELET COUNT, AUTOMATED 330 10^3/uL (150-450); RED BLOOD COUNT 4.31 10^6/uL (4.30-6.10); RED CELL DISTRIBUTION WIDTH 13.8 % (11.5-14.5); WHITE BLOOD COUNT 13.9 10^3/uL (4.0-10.0)
[2018-06-08 10:40] LABS: ALBUMIN 2.6 GM/DL (3.2-5.2); ALKALINE PHOSPHATASE 263 U/L (45-117); ALT/SGPT 60 U/L (12-78); ANION GAP 11 MEQ/L (8-16); AST/SGOT 57 U/L (7-37); BILIRUBIN,TOTAL 0.5 MG/DL (0.2-1.0); BLOOD UREA NITROGEN 29 MG/DL (7-18); CALCIUM LEVEL 8.7 MG/DL (8.8-10.2); CARBON DIOXIDE LEVEL 24 MEQ/L (21-32); CHLORIDE LEVEL 110 MEQ/L (98-107); GLOMERULAR FILTRATION RATE 48.7 (>42); GLUCOSE, FASTING 126 MG/DL (70-100); POTASSIUM SERUM 3.4 MEQ/L (3.5-5.1); SODIUM LEVEL 145 MEQ/L (136-145); TOTAL PROTEIN 6.6 GM/DL (6.4-8.2)
[2018-06-08 10:44] LABS: INR 1.65; PROTHROMBIN TIME 19.8 SECONDS (12.1-14.4)
[2018-06-08] MEDS: DOCUSATE SOD LIQ 100MG/10ML UDC PO ×2 (11:53→20:55)
[2018-06-08 12:02] LABS: ALBUMIN/GLOBULIN RATIO 1.54 (1.00-1.93)
[2018-06-08] MEDS: POTASSIUM CHLORIDE 10% LIQ 20 MEQ/15 ML UDC PO (12:18)
[2018-06-08] MEDS: WARFARIN SOD 4 MG TAB PO (16:49)
[2018-06-08] MEDS: ATORVASTATIN 20 MG TAB PO (20:55)
[2018-06-08] MEDS: QUEtiapine FUMARATE 25 MG TAB PO (20:55)
[2018-06-08] MEDS: SENNA 8.6 MG TAB (SENOKOT) PO (20:56)
[2018-06-09] MEDS: oxyCODONE 5MG TAB PO ×2 (01:47→19:52)
[2018-06-09] MEDS: AMPICILLIN SOD/SULBACTAM SOD 1.5 GM in D5W MINI-BAG PLUS 50 ML IV ×4 (01:47→21:00)
[2018-06-09] MEDS: SLF 3 ML SYR IV ×3 (06:00→21:54)
[2018-06-09] MEDS: oxyCODONE 20 MG CR TAB PO ×2 (06:11→18:06)
[2018-06-09 07:27] LABS: HEMATOCRIT 38.7 % (42.0-52.0); HEMOGLOBIN 12.9 g/dl (13.5-17.5); MEAN CORPUSCULAR HEMOGLOBIN 30.1 pg (27.0-33.0); MEAN CORPUSCULAR HGB CONC 33.3 g/dl (32.0-36.5); MEAN CORPUSCULAR VOLUME 90.2 fl (80.0-96.0); PLATELET COUNT, AUTOMATED 354 10^3/uL (150-450); RED BLOOD COUNT 4.29 10^6/uL (4.30-6.10); WHITE BLOOD COUNT 13.6 10^3/uL (4.0-10.0)
[2018-06-09 07:45] LABS: INR 2.03; PROTHROMBIN TIME 23.3 SECONDS (12.1-14.4)
[2018-06-09 08:00] LABS: ALBUMIN 2.5 GM/DL (3.2-5.2); ALBUMIN/GLOBULIN RATIO 0.49 (1.00-1.93); ALKALINE PHOSPHATASE 242 U/L (45-117); ALT/SGPT 55 U/L (12-78); ANION GAP 8 MEQ/L (8-16); AST/SGOT 51 U/L (7-37); BILIRUBIN,TOTAL 0.5 MG/DL (0.2-1.0); BLOOD UREA NITROGEN 26 MG/DL (7-18); CALCIUM LEVEL 8.9 MG/DL (8.8-10.2); CARBON DIOXIDE LEVEL 24 MEQ/L (21-32); CHLORIDE LEVEL 110 MEQ/L (98-107); CREATININE FOR GFR 1.54 MG/DL (0.70-1.30); GLOMERULAR FILTRATION RATE 47.2 (>42); GLUCOSE, FASTING 111 MG/DL (70-100); POTASSIUM SERUM 3.4 MEQ/L (3.5-5.1); SODIUM LEVEL 142 MEQ/L (136-145); TOTAL PROTEIN 7.6 GM/DL (6.4-8.2)
[2018-06-09] MEDS: CALCIUM CARBONATE 500 MG CHEW U/D PO ×3 (08:32→18:05)
[2018-06-09] MEDS: CARVedilol 6.25 MG TAB PO ×2 (08:32→21:04)
[2018-06-09] MEDS: FINASTERIDE 5 MG TAB PO (08:32)
[2018-06-09] MEDS: ASPIRIN 81 MG ENTERIC TAB PO (08:33)
[2018-06-09] MEDS: PANTOPRAZOLE 40MG TAB (PROTONIX) PO (08:33)
[2018-06-09] MEDS: SPIRONOLACTONE 25 MG TAB PO (08:33)
[2018-06-09] MEDS: DOCUSATE SOD LIQ 100MG/10ML UDC PO (08:33)
[2018-06-09] MEDS: NYSTATIN 500,000 U/5 ML SUSP UDC SS ×4 (08:33→21:00)
[2018-06-09] MEDS: METHOCARBAMOL 750 MG TAB PO ×3 (08:33→22:54)
[2018-06-09] MEDS: ACETAMINOPHEN 325 MG TAB PO ×3 (08:33→21:02)
[2018-06-09] MEDS: buPROPion 100 MG TAB PO ×3 (08:33→21:02)
[2018-06-09] MEDS: NICOTINE 21MG/24HR 1 EA TRANSDERMAL TD (08:34)
[2018-06-09] MEDS: IPRATROPIUM 0.5MG/ALBUTEROL 2.5MG INH SOL UD 3ML (DUONEB)(J7620) NEB ×2 (09:03→15:42)
[2018-06-09] MEDS: POTASSIUM CHLORIDE 10% LIQ 20 MEQ/15 ML UDC PO (10:00)
[2018-06-09] MEDS: POTASSIUM CHLORIDE 10 MEQ SR TABLET PO ×2 (10:00→21:01)
[2018-06-09] MEDS: WARFARIN SOD 2.5 MG TAB PO (18:05)
[2018-06-09] MEDS: SENNA 8.6 MG TAB (SENOKOT) PO (21:00)
[2018-06-09] MEDS: diphenhydrAMINE 25 MG CAP PO (21:02)
[2018-06-09] MEDS: ATORVASTATIN 20 MG TAB PO (21:02)
[2018-06-09] MEDS: QUEtiapine FUMARATE 25 MG TAB PO (21:02)
[2018-06-09] MEDS: DOCUSATE SODIUM 100 MG CAP PO (21:04)
[2018-06-10] MEDS: oxyCODONE 5MG TAB PO ×2 (00:38→04:56)
[2018-06-10] MEDS: AMPICILLIN SOD/SULBACTAM SOD 1.5 GM in D5W MINI-BAG PLUS 50 ML IV ×3 (01:00→14:09)
[2018-06-10] MEDS: IPRATROPIUM 0.5MG/ALBUTEROL 2.5MG INH SOL UD 3ML (DUONEB)(J7620) NEB ×4 (01:27→19:47)
[2018-06-10] MEDS: SLF 3 ML SYR IV ×2 (05:37→14:09)
[2018-06-10] MEDS: oxyCODONE 20 MG CR TAB PO ×2 (06:34→18:41)
[2018-06-10 08:14] LABS: HEMATOCRIT 38.4 % (42.0-52.0); HEMOGLOBIN 12.7 g/dl (13.5-17.5); MEAN CORPUSCULAR HEMOGLOBIN 29.8 pg (27.0-33.0); MEAN CORPUSCULAR HGB CONC 33.1 g/dl (32.0-36.5); MEAN CORPUSCULAR VOLUME 90.1 fl (80.0-96.0); PLATELET COUNT, AUTOMATED 390 10^3/uL (150-450); RED BLOOD COUNT 4.26 10^6/uL (4.30-6.10); RED CELL DISTRIBUTION WIDTH 14.1 % (11.5-14.5); WHITE BLOOD COUNT 13.7 10^3/uL (4.0-10.0)
[2018-06-10 08:27] LABS: INR 2.39; PROTHROMBIN TIME 26.6 SECONDS (12.1-14.4)
[2018-06-10] MEDS: NYSTATIN 500,000 U/5 ML SUSP UDC SS ×4 (08:33→20:19)
[2018-06-10] MEDS: ACETAMINOPHEN 325 MG TAB PO ×3 (08:34→21:00)
[2018-06-10] MEDS: buPROPion 100 MG TAB PO (08:34)
[2018-06-10] MEDS: CALCIUM CARBONATE 500 MG CHEW U/D PO ×3 (08:34→17:37)
[2018-06-10] MEDS: PANTOPRAZOLE 40MG TAB (PROTONIX) PO (08:34)
[2018-06-10] MEDS: SPIRONOLACTONE 25 MG TAB PO (08:34)
[2018-06-10] MEDS: FINASTERIDE 5 MG TAB PO (08:34)
[2018-06-10] MEDS: NICOTINE 21MG/24HR 1 EA TRANSDERMAL TD (08:34)
[2018-06-10] MEDS: ASPIRIN 81 MG ENTERIC TAB PO (08:34)
[2018-06-10] MEDS: CARVedilol 6.25 MG TAB PO ×2 (08:35→20:25)
[2018-06-10] MEDS: DOCUSATE SODIUM 100 MG CAP PO ×2 (08:35→20:20)
[2018-06-10 08:50] LABS: ALBUMIN 2.9 GM/DL (3.2-5.2); ALBUMIN/GLOBULIN RATIO 0.67 (1.00-1.93); ALKALINE PHOSPHATASE 233 U/L (45-117); ALT/SGPT 57 U/L (12-78); ANION GAP 9 MEQ/L (8-16); AST/SGOT 53 U/L (7-37); BILIRUBIN,TOTAL 0.4 MG/DL (0.2-1.0); BLOOD UREA NITROGEN 23 MG/DL (7-18); CALCIUM LEVEL 8.8 MG/DL (8.8-10.2); CARBON DIOXIDE LEVEL 22 MEQ/L (21-32); CHLORIDE LEVEL 112 MEQ/L (98-107); CREATININE FOR GFR 1.65 MG/DL (0.70-1.30); GLOMERULAR FILTRATION RATE 43.6 (>42); GLUCOSE, FASTING 101 MG/DL (70-100); POTASSIUM SERUM 4.4 MEQ/L (3.5-5.1); SODIUM LEVEL 143 MEQ/L (136-145); TOTAL PROTEIN 7.2 GM/DL (6.4-8.2)
[2018-06-10 09:43] LABS: SLIDE REVIEW Report; SOURCE PERIPHERAL SMEAR
[2018-06-10] MEDS: WARFARIN SOD 2.5 MG TAB PO (17:37)
[2018-06-10] MEDS: MORPHINE 30 MG TAB **MSIR PO (18:41)
[2018-06-10] MEDS: guaiFENesin ER 600 MG TAB PO (20:19)
[2018-06-10] MEDS: SENNA 8.6 MG TAB (SENOKOT) PO (20:24)
[2018-06-10] MEDS: ATORVASTATIN 20 MG TAB PO (20:25)
[2018-06-10] MEDS: QUEtiapine FUMARATE 25 MG TAB PO (20:26)
[2018-06-10] MEDS ORDERED: guaiFENesin ER 600 MG TAB PO (21:00)
[2018-06-11] MEDS: oxyCODONE 20 MG CR TAB PO ×2 (06:49→18:36)
[2018-06-11] MEDS: MORPHINE 30 MG TAB **MSIR PO ×3 (06:50→18:37)
[2018-06-11 08:07] LABS: HEMATOCRIT 37.2 % (42.0-52.0); HEMOGLOBIN 12.3 g/dl (13.5-17.5); MEAN CORPUSCULAR HEMOGLOBIN 29.7 pg (27.0-33.0); MEAN CORPUSCULAR HGB CONC 33.1 g/dl (32.0-36.5); MEAN CORPUSCULAR VOLUME 89.9 fl (80.0-96.0); PLATELET COUNT, AUTOMATED 360 10^3/uL (150-450); RED BLOOD COUNT 4.14 10^6/uL (4.30-6.10); RED CELL DISTRIBUTION WIDTH 14.1 % (11.5-14.5); WHITE BLOOD COUNT 11.8 10^3/uL (4.0-10.0)
[2018-06-11] MEDS: IPRATROPIUM 0.5MG/ALBUTEROL 2.5MG INH SOL UD 3ML (DUONEB)(J7620) NEB ×3 (08:16→19:34)
[2018-06-11 08:17] LABS: INR 2.62; PROTHROMBIN TIME 28.6 SECONDS (12.1-14.4)
[2018-06-11] MEDS: NICOTINE 21MG/24HR 1 EA TRANSDERMAL TD (08:35)
[2018-06-11] MEDS: CARVedilol 6.25 MG TAB PO ×2 (08:36→21:08)
[2018-06-11] MEDS: CALCIUM CARBONATE 500 MG CHEW U/D PO ×3 (08:36→17:19)
[2018-06-11] MEDS: ASPIRIN 81 MG ENTERIC TAB PO (08:36)
[2018-06-11] MEDS: PANTOPRAZOLE 40MG TAB (PROTONIX) PO (08:36)
[2018-06-11] MEDS: NYSTATIN 500,000 U/5 ML SUSP UDC SS ×4 (08:36→21:07)
[2018-06-11] MEDS: SPIRONOLACTONE 25 MG TAB PO (08:36)
[2018-06-11] MEDS: FINASTERIDE 5 MG TAB PO (08:37)
[2018-06-11] MEDS: AUGMENTIN 875 MG TAB GT (08:37)
[2018-06-11] MEDS: guaiFENesin ER 600 MG TAB PO ×2 (08:37→21:08)
[2018-06-11] MEDS: buPROPion **XL** TABLET 150MG (WELLBUTRIN XL) PO (08:37)
[2018-06-11] MEDS: DOCUSATE SODIUM 100 MG CAP PO ×2 (08:38→21:08)
[2018-06-11] MEDS: ACETAMINOPHEN 325 MG TAB PO ×3 (08:38→21:09)
[2018-06-11 08:47] LABS: ALBUMIN 2.7 GM/DL (3.2-5.2); ALKALINE PHOSPHATASE 183 U/L (45-117); ALT/SGPT 44 U/L (12-78); ANION GAP 10 MEQ/L (8-16); AST/SGOT 42 U/L (7-37); BILIRUBIN,TOTAL 0.4 MG/DL (0.2-1.0); BLOOD UREA NITROGEN 23 MG/DL (7-18); CALCIUM LEVEL 8.8 MG/DL (8.8-10.2); CARBON DIOXIDE LEVEL 21 MEQ/L (21-32); CHLORIDE LEVEL 110 MEQ/L (98-107); CREATININE FOR GFR 1.57 MG/DL (0.70-1.30); GLOMERULAR FILTRATION RATE 46.2 (>42); GLUCOSE, FASTING 92 MG/DL (70-100); POTASSIUM SERUM 4.2 MEQ/L (3.5-5.1); SODIUM LEVEL 141 MEQ/L (136-145); TOTAL PROTEIN 7.2 GM/DL (6.4-8.2)
[2018-06-11] MEDS: WARFARIN SOD 3 MG TAB PO (17:19)
[2018-06-11] MEDS: ATORVASTATIN 20 MG TAB PO (21:07)
[2018-06-11] MEDS: QUEtiapine FUMARATE 25 MG TAB PO (21:08)
[2018-06-11] MEDS: SENNA 8.6 MG TAB (SENOKOT) PO (21:08)
[2018-06-11] MEDS: AUGMENTIN 875 MG TAB PO (21:09)
[2018-06-12] MEDS: IPRATROPIUM 0.5MG/ALBUTEROL 2.5MG INH SOL UD 3ML (DUONEB)(J7620) NEB ×4 (02:48→20:20)
[2018-06-12] MEDS: MORPHINE 30 MG TAB **MSIR PO ×3 (06:52→18:27)
[2018-06-12] MEDS: oxyCODONE 20 MG CR TAB PO ×2 (06:53→18:28)
[2018-06-12 07:43] LABS: HEMATOCRIT 38.8 % (42.0-52.0); HEMOGLOBIN 12.6 g/dl (13.5-17.5); MEAN CORPUSCULAR HEMOGLOBIN 29.8 pg (27.0-33.0); MEAN CORPUSCULAR HGB CONC 32.5 g/dl (32.0-36.5); MEAN CORPUSCULAR VOLUME 91.7 fl (80.0-96.0); PLATELET COUNT, AUTOMATED 366 10^3/uL (150-450); RED BLOOD COUNT 4.23 10^6/uL (4.30-6.10); RED CELL DISTRIBUTION WIDTH 14.1 % (11.5-14.5); WHITE BLOOD COUNT 9.9 10^3/uL (4.0-10.0)
[2018-06-12 08:05] LABS: INR 3.15; PROTHROMBIN TIME 33.1 SECONDS (12.1-14.4)
[2018-06-12 08:11] LABS: ALBUMIN 2.8 GM/DL (3.2-5.2); ALBUMIN/GLOBULIN RATIO 0.72 (1.00-1.93); ALKALINE PHOSPHATASE 178 U/L (45-117); ALT/SGPT 44 U/L (12-78); ANION GAP 10 MEQ/L (8-16); AST/SGOT 37 U/L (7-37); BILIRUBIN,TOTAL 0.4 MG/DL (0.2-1.0); BLOOD UREA NITROGEN 28 MG/DL (7-18); CALCIUM LEVEL 8.5 MG/DL (8.8-10.2); CARBON DIOXIDE LEVEL 23 MEQ/L (21-32); CHLORIDE LEVEL 109 MEQ/L (98-107); GLOMERULAR FILTRATION RATE 42.2 (>42); GLUCOSE, FASTING 82 MG/DL (70-100); POTASSIUM SERUM 4.7 MEQ/L (3.5-5.1); SODIUM LEVEL 142 MEQ/L (136-145); TOTAL PROTEIN 6.7 GM/DL (6.4-8.2)
[2018-06-12] MEDS: NYSTATIN 500,000 U/5 ML SUSP UDC SS ×4 (09:23→20:42)
[2018-06-12] MEDS: AUGMENTIN 875 MG TAB PO ×2 (09:24→20:43)
[2018-06-12] MEDS: buPROPion **XL** TABLET 150MG (WELLBUTRIN XL) PO (09:24)
[2018-06-12] MEDS: SPIRONOLACTONE 25 MG TAB PO (09:24)
[2018-06-12] MEDS: FINASTERIDE 5 MG TAB PO (09:24)
[2018-06-12] MEDS: CALCIUM CARBONATE 500 MG CHEW U/D PO ×3 (09:24→17:20)
[2018-06-12] MEDS: DOCUSATE SODIUM 100 MG CAP PO ×2 (09:24→20:43)
[2018-06-12] MEDS: guaiFENesin ER 600 MG TAB PO ×2 (09:24→20:43)
[2018-06-12] MEDS: CARVedilol 6.25 MG TAB PO ×2 (09:24→20:42)
[2018-06-12] MEDS: ASPIRIN 81 MG ENTERIC TAB PO (09:24)
[2018-06-12] MEDS: PANTOPRAZOLE 40MG TAB (PROTONIX) PO (09:25)
[2018-06-12] MEDS: ACETAMINOPHEN 325 MG TAB PO ×3 (09:25→20:44)
[2018-06-12] MEDS: NICOTINE 21MG/24HR 1 EA TRANSDERMAL TD (09:25)
[2018-06-12] MEDS: WARFARIN SOD 3 MG TAB PO (17:20)
[2018-06-12] MEDS: SENNA 8.6 MG TAB (SENOKOT) PO (20:42)
[2018-06-12] MEDS: QUEtiapine FUMARATE 25 MG TAB PO (20:43)
[2018-06-12] MEDS: ATORVASTATIN 20 MG TAB PO (20:43)
[2018-06-13] MEDS: IPRATROPIUM 0.5MG/ALBUTEROL 2.5MG INH SOL UD 3ML (DUONEB)(J7620) NEB ×4 (02:25→20:16)
[2018-06-13] MEDS: oxyCODONE 20 MG CR TAB PO ×2 (06:26→18:39)
[2018-06-13] MEDS: MORPHINE 30 MG TAB **MSIR PO ×3 (06:27→18:40)
[2018-06-13 07:40] LABS: INR 2.87; PROTHROMBIN TIME 30.7 SECONDS (12.1-14.4)
[2018-06-13] MEDS: NYSTATIN 500,000 U/5 ML SUSP UDC SS ×4 (08:35→20:10)
[2018-06-13] MEDS: ASPIRIN 81 MG ENTERIC TAB PO (08:35)
[2018-06-13] MEDS: NICOTINE 21MG/24HR 1 EA TRANSDERMAL TD (08:35)
[2018-06-13] MEDS: guaiFENesin ER 600 MG TAB PO ×2 (08:35→20:10)
[2018-06-13] MEDS: FINASTERIDE 5 MG TAB PO (08:35)
[2018-06-13] MEDS: CALCIUM CARBONATE 500 MG CHEW U/D PO ×3 (08:35→17:15)
[2018-06-13] MEDS: PANTOPRAZOLE 40MG TAB (PROTONIX) PO (08:36)
[2018-06-13] MEDS: buPROPion **XL** TABLET 150MG (WELLBUTRIN XL) PO (08:36)
[2018-06-13] MEDS: ACETAMINOPHEN 325 MG TAB PO ×3 (08:36→20:11)
[2018-06-13] MEDS: CARVedilol 6.25 MG TAB PO ×2 (08:36→20:12)
[2018-06-13] MEDS: SPIRONOLACTONE 25 MG TAB PO (08:36)
[2018-06-13] MEDS: AUGMENTIN 875 MG TAB PO ×2 (08:36→20:10)
[2018-06-13] MEDS: DOCUSATE SODIUM 100 MG CAP PO ×2 (08:36→20:10)
[2018-06-13] MEDS: WARFARIN SOD 3 MG TAB PO (17:16)
[2018-06-13] MEDS: diphenhydrAMINE 25 MG CAP PO (20:10)
[2018-06-13] MEDS: SENNA 8.6 MG TAB (SENOKOT) PO (20:11)
[2018-06-13] MEDS: ATORVASTATIN 20 MG TAB PO (20:11)
[2018-06-13] MEDS: QUEtiapine FUMARATE 25 MG TAB PO (20:11)
[2018-06-14] MEDS: oxyCODONE 5MG TAB PO (00:10)
[2018-06-14] MEDS: IPRATROPIUM 0.5MG/ALBUTEROL 2.5MG INH SOL UD 3ML (DUONEB)(J7620) NEB ×4 (02:00→20:36)
[2018-06-14] MEDS: MORPHINE 30 MG TAB **MSIR PO ×3 (06:30→18:31)
[2018-06-14] MEDS: oxyCODONE 20 MG CR TAB PO ×2 (06:31→17:32)
[2018-06-14 07:11] LABS: HEMATOCRIT 38.4 % (42.0-52.0); HEMOGLOBIN 12.3 g/dl (13.5-17.5); MEAN CORPUSCULAR HEMOGLOBIN 29.1 pg (27.0-33.0); PLATELET COUNT, AUTOMATED 359 10^3/uL (150-450); RED BLOOD COUNT 4.22 10^6/uL (4.30-6.10); RED CELL DISTRIBUTION WIDTH 14.3 % (11.5-14.5); WHITE BLOOD COUNT 9.7 10^3/uL (4.0-10.0)
[2018-06-14 07:34] LABS: ALBUMIN 2.8 GM/DL (3.2-5.2); ALBUMIN/GLOBULIN RATIO 0.68 (1.00-1.93); ALKALINE PHOSPHATASE 172 U/L (45-117); ALT/SGPT 35 U/L (12-78); ANION GAP 11 MEQ/L (8-16); AST/SGOT 34 U/L (7-37); BILIRUBIN,TOTAL 0.4 MG/DL (0.2-1.0); BLOOD UREA NITROGEN 30 MG/DL (7-18); CALCIUM LEVEL 8.6 MG/DL (8.8-10.2); CARBON DIOXIDE LEVEL 23 MEQ/L (21-32); CHLORIDE LEVEL 109 MEQ/L (98-107); GLOMERULAR FILTRATION RATE 45.2 (>42); GLUCOSE, FASTING 88 MG/DL (70-100); POTASSIUM SERUM 4.7 MEQ/L (3.5-5.1); SODIUM LEVEL 143 MEQ/L (136-145); TOTAL PROTEIN 6.9 GM/DL (6.4-8.2)
[2018-06-14 07:36] LABS: INR 2.37; PROTHROMBIN TIME 26.4 SECONDS (12.1-14.4)
[2018-06-14] MEDS: CALCIUM CARBONATE 500 MG CHEW U/D PO ×3 (08:50→17:29)
[2018-06-14] MEDS: NICOTINE 21MG/24HR 1 EA TRANSDERMAL TD (08:50)
[2018-06-14] MEDS: NYSTATIN 500,000 U/5 ML SUSP UDC SS (08:50)
[2018-06-14] MEDS: PANTOPRAZOLE 40MG TAB (PROTONIX) PO (08:50)
[2018-06-14] MEDS: SPIRONOLACTONE 25 MG TAB PO (08:52)
[2018-06-14] MEDS: ASPIRIN 81 MG ENTERIC TAB PO (08:52)
[2018-06-14] MEDS: ACETAMINOPHEN 325 MG TAB PO ×3 (08:52→21:17)
[2018-06-14] MEDS: guaiFENesin ER 600 MG TAB PO ×2 (08:52→21:17)
[2018-06-14] MEDS: buPROPion **XL** TABLET 150MG (WELLBUTRIN XL) PO (08:53)
[2018-06-14] MEDS: DOCUSATE SODIUM 100 MG CAP PO ×2 (08:53→21:14)
[2018-06-14] MEDS: CARVedilol 6.25 MG TAB PO ×2 (08:53→21:16)
[2018-06-14] MEDS: FINASTERIDE 5 MG TAB PO (08:53)
[2018-06-14] MEDS: WARFARIN SOD 2.5 MG TAB PO (17:30)
[2018-06-14] MEDS: SENNA 8.6 MG TAB (SENOKOT) PO (21:14)
[2018-06-14] MEDS: QUEtiapine FUMARATE 25 MG TAB PO (21:17)
[2018-06-14] MEDS: ATORVASTATIN 20 MG TAB PO (21:17)
[2018-06-15] MEDS: IPRATROPIUM 0.5MG/ALBUTEROL 2.5MG INH SOL UD 3ML (DUONEB)(J7620) NEB ×4 (01:00→21:36)
[2018-06-15] MEDS: MORPHINE 30 MG TAB **MSIR PO ×3 (06:27→18:10)
[2018-06-15] MEDS: oxyCODONE 20 MG CR TAB PO ×2 (06:27→18:11)
[2018-06-15] MEDS: ACETAMINOPHEN 325 MG TAB PO ×3 (08:20→20:28)
[2018-06-15] MEDS: ASPIRIN 81 MG ENTERIC TAB PO (08:20)
[2018-06-15] MEDS: buPROPion **XL** TABLET 150MG (WELLBUTRIN XL) PO (08:20)
[2018-06-15] MEDS: CALCIUM CARBONATE 500 MG CHEW U/D PO ×3 (08:20→17:00)
[2018-06-15] MEDS: FINASTERIDE 5 MG TAB PO (08:20)
[2018-06-15] MEDS: guaiFENesin ER 600 MG TAB PO ×2 (08:21→20:29)
[2018-06-15] MEDS: NICOTINE 21MG/24HR 1 EA TRANSDERMAL TD (08:21)
[2018-06-15] MEDS: DOCUSATE SODIUM 100 MG CAP PO ×2 (08:21→20:29)
[2018-06-15] MEDS: SPIRONOLACTONE 25 MG TAB PO (08:21)
[2018-06-15] MEDS: PANTOPRAZOLE 40MG TAB (PROTONIX) PO (08:21)
[2018-06-15] MEDS: CARVedilol 6.25 MG TAB PO ×2 (08:21→20:28)
[2018-06-15 08:40] LABS: HEMATOCRIT 38.3 % (42.0-52.0); HEMOGLOBIN 12.5 g/dl (13.5-17.5); MEAN CORPUSCULAR HEMOGLOBIN 29.8 pg (27.0-33.0); MEAN CORPUSCULAR HGB CONC 32.6 g/dl (32.0-36.5); MEAN CORPUSCULAR VOLUME 91.2 fl (80.0-96.0); PLATELET COUNT, AUTOMATED 339 10^3/uL (150-450); RED CELL DISTRIBUTION WIDTH 14.1 % (11.5-14.5); WHITE BLOOD COUNT 10.8 10^3/uL (4.0-10.0)
[2018-06-15 09:15] LABS: INR 2.07; PROTHROMBIN TIME 23.7 SECONDS (12.1-14.4)
[2018-06-15 09:23] LABS: ALBUMIN/GLOBULIN RATIO 0.75 (1.00-1.93); ALKALINE PHOSPHATASE 164 U/L (45-117); ALT/SGPT 33 U/L (12-78); ANION GAP 10 MEQ/L (8-16); AST/SGOT 33 U/L (7-37); BILIRUBIN,TOTAL 0.4 MG/DL (0.2-1.0); BLOOD UREA NITROGEN 31 MG/DL (7-18); CALCIUM LEVEL 8.7 MG/DL (8.8-10.2); CARBON DIOXIDE LEVEL 25 MEQ/L (21-32); CHLORIDE LEVEL 107 MEQ/L (98-107); CREATININE FOR GFR 1.71 MG/DL (0.70-1.30); GLOMERULAR FILTRATION RATE 41.9 (>42); GLUCOSE, FASTING 94 MG/DL (70-100); POTASSIUM SERUM 4.6 MEQ/L (3.5-5.1); SODIUM LEVEL 142 MEQ/L (136-145)
[2018-06-15] MEDS: NS 500 ML IV (15:45)
[2018-06-15] MEDS: WARFARIN SOD 2.5 MG TAB PO (17:00)
[2018-06-15] MEDS: BISACODYL 10 MG SUPP PR (17:00)
[2018-06-15] MEDS: SENNA 8.6 MG TAB (SENOKOT) PO (20:27)
[2018-06-15] MEDS: ATORVASTATIN 20 MG TAB PO (20:28)
[2018-06-15] MEDS: QUEtiapine FUMARATE 25 MG TAB PO (20:29)
[2018-06-16] MEDS: IPRATROPIUM 0.5MG/ALBUTEROL 2.5MG INH SOL UD 3ML (DUONEB)(J7620) NEB ×4 (00:54→20:47)
[2018-06-16] MEDS: MORPHINE 30 MG TAB **MSIR PO ×3 (06:37→18:28)
[2018-06-16] MEDS: oxyCODONE 20 MG CR TAB PO ×2 (06:38→18:28)
[2018-06-16 08:29] LABS: INR 1.92; PROTHROMBIN TIME 22.3 SECONDS (12.1-14.4)
[2018-06-16] MEDS: NICOTINE 21MG/24HR 1 EA TRANSDERMAL TD (08:44)
[2018-06-16] MEDS: DOCUSATE SODIUM 100 MG CAP PO ×2 (08:45→21:07)
[2018-06-16] MEDS: SPIRONOLACTONE 25 MG TAB PO (08:45)
[2018-06-16] MEDS: guaiFENesin ER 600 MG TAB PO ×2 (08:45→21:08)
[2018-06-16] MEDS: FINASTERIDE 5 MG TAB PO (08:46)
[2018-06-16] MEDS: ACETAMINOPHEN 325 MG TAB PO ×3 (08:46→21:08)
[2018-06-16] MEDS: CARVedilol 6.25 MG TAB PO ×2 (08:46→21:09)
[2018-06-16] MEDS: buPROPion **XL** TABLET 150MG (WELLBUTRIN XL) PO (08:46)
[2018-06-16] MEDS: PANTOPRAZOLE 40MG TAB (PROTONIX) PO (08:46)
[2018-06-16] MEDS: ASPIRIN 81 MG ENTERIC TAB PO (08:47)
[2018-06-16] MEDS: CALCIUM CARBONATE 500 MG CHEW U/D PO ×3 (08:47→17:19)
[2018-06-16] MEDS: WARFARIN SOD 3 MG TAB PO (17:19)
[2018-06-16] MEDS: ATORVASTATIN 20 MG TAB PO (21:07)
[2018-06-16] MEDS: SENNA 8.6 MG TAB (SENOKOT) PO (21:08)
[2018-06-16] MEDS: QUEtiapine FUMARATE 25 MG TAB PO (21:08)
[2018-06-17] MEDS: CALCIUM CARBONATE 500 MG CHEW U/D PO ×4 (02:14→18:29)
[2018-06-17] MEDS: IPRATROPIUM 0.5MG/ALBUTEROL 2.5MG INH SOL UD 3ML (DUONEB)(J7620) NEB ×4 (02:47→19:47)
[2018-06-17] MEDS: oxyCODONE 20 MG CR TAB PO ×2 (06:36→18:29)
[2018-06-17] MEDS: MORPHINE 30 MG TAB **MSIR PO ×3 (06:37→18:29)
[2018-06-17 07:04] LABS: HEMATOCRIT 40.1 % (42.0-52.0); MEAN CORPUSCULAR HEMOGLOBIN 29.5 pg (27.0-33.0); MEAN CORPUSCULAR HGB CONC 32.4 g/dl (32.0-36.5); MEAN CORPUSCULAR VOLUME 91.1 fl (80.0-96.0); PLATELET COUNT, AUTOMATED 288 10^3/uL (150-450); RED CELL DISTRIBUTION WIDTH 14.2 % (11.5-14.5); WHITE BLOOD COUNT 15.1 10^3/uL (4.0-10.0)
[2018-06-17 07:13] LABS: INR 1.82; PROTHROMBIN TIME 21.4 SECONDS (12.1-14.4)
[2018-06-17 07:27] LABS: ANION GAP 10 MEQ/L (8-16); BLOOD UREA NITROGEN 28 MG/DL (7-18); CALCIUM LEVEL 9.3 MG/DL (8.8-10.2); CARBON DIOXIDE LEVEL 24 MEQ/L (21-32); CHLORIDE LEVEL 107 MEQ/L (98-107); CREATININE FOR GFR 1.63 MG/DL (0.70-1.30); GLOMERULAR FILTRATION RATE 44.2 (>42); GLUCOSE, FASTING 100 MG/DL (70-100); POTASSIUM SERUM 4.6 MEQ/L (3.5-5.1); SODIUM LEVEL 141 MEQ/L (136-145)
[2018-06-17] MEDS: SPIRONOLACTONE 25 MG TAB PO (09:11)
[2018-06-17] MEDS: ASPIRIN 81 MG ENTERIC TAB PO (09:11)
[2018-06-17] MEDS: PANTOPRAZOLE 40MG TAB (PROTONIX) PO (09:12)
[2018-06-17] MEDS: guaiFENesin ER 600 MG TAB PO ×2 (09:12→20:49)
[2018-06-17] MEDS: FINASTERIDE 5 MG TAB PO (09:12)
[2018-06-17] MEDS: DOCUSATE SODIUM 100 MG CAP PO ×2 (09:14→20:48)
[2018-06-17] MEDS: CARVedilol 6.25 MG TAB PO ×2 (09:17→20:49)
[2018-06-17] MEDS: buPROPion **XL** TABLET 150MG (WELLBUTRIN XL) PO (09:18)
[2018-06-17] MEDS: ACETAMINOPHEN 325 MG TAB PO ×3 (09:18→20:48)
[2018-06-17] MEDS: NICOTINE 21MG/24HR 1 EA TRANSDERMAL TD (09:19)
[2018-06-17] MEDS ORDERED: VARIBAR PUDDING 40% w/v 230ML TUBE As Ordered (12:43)
[2018-06-17] MEDS ORDERED: VARIBAR NECTAR 40% w/v 240ML SUSP BTL As Ordered (12:43)
[2018-06-17] MEDS ORDERED: E-Z-PAQUE 96% w/w SUSP 176GM BTL As Ordered (12:44)
[2018-06-17] MEDS: ONDANSETRON 4MG/2ML VIAL (J2405) IV (15:45)
[2018-06-17] MEDS: WARFARIN SOD 4 MG TAB PO (18:29)
[2018-06-17] MEDS: ATORVASTATIN 20 MG TAB PO (20:48)
[2018-06-17] MEDS: QUEtiapine FUMARATE 25 MG TAB PO (20:48)
[2018-06-17] MEDS: SENNA 8.6 MG TAB (SENOKOT) PO (20:49)
[2018-06-18] MEDS: IPRATROPIUM 0.5MG/ALBUTEROL 2.5MG INH SOL UD 3ML (DUONEB)(J7620) NEB ×4 (01:21→20:24)
[2018-06-18] MEDS: oxyCODONE 20 MG CR TAB PO ×2 (06:24→18:32)
[2018-06-18] MEDS: MORPHINE 30 MG TAB **MSIR PO ×3 (06:25→18:31)
[2018-06-18 06:48] LABS: INR 2.17; PROTHROMBIN TIME 24.6 SECONDS (12.1-14.4)
[2018-06-18] MEDS: guaiFENesin ER 600 MG TAB PO ×2 (09:10→21:19)
[2018-06-18] MEDS: ASPIRIN 81 MG ENTERIC TAB PO (09:10)
[2018-06-18] MEDS: CALCIUM CARBONATE 500 MG CHEW U/D PO ×3 (09:10→16:54)
[2018-06-18] MEDS: buPROPion **XL** TABLET 150MG (WELLBUTRIN XL) PO (09:10)
[2018-06-18] MEDS: DOCUSATE SODIUM 100 MG CAP PO ×2 (09:10→21:19)
[2018-06-18] MEDS: FINASTERIDE 5 MG TAB PO (09:11)
[2018-06-18] MEDS: SPIRONOLACTONE 25 MG TAB PO (09:11)
[2018-06-18] MEDS: NICOTINE 21MG/24HR 1 EA TRANSDERMAL TD (09:11)
[2018-06-18] MEDS: PANTOPRAZOLE 40MG TAB (PROTONIX) PO (09:11)
[2018-06-18] MEDS: CARVedilol 6.25 MG TAB PO ×2 (09:11→21:21)
[2018-06-18] MEDS: ACETAMINOPHEN 325 MG TAB PO ×3 (09:11→21:20)
[2018-06-18] MEDS: WARFARIN SOD 3 MG TAB PO (16:54)
[2018-06-18] MEDS: QUEtiapine FUMARATE 25 MG TAB PO (21:00)
[2018-06-18] MEDS: SENNA 8.6 MG TAB (SENOKOT) PO (21:19)
[2018-06-18] MEDS: ATORVASTATIN 20 MG TAB PO (21:21)
[2018-06-19] MEDS: IPRATROPIUM 0.5MG/ALBUTEROL 2.5MG INH SOL UD 3ML (DUONEB)(J7620) NEB ×4 (02:00→20:28)
[2018-06-19 05:56] LABS: INR 2.73; PROTHROMBIN TIME 29.5 SECONDS (12.1-14.4)
[2018-06-19] MEDS: oxyCODONE 20 MG CR TAB PO ×2 (06:34→18:54)
[2018-06-19] MEDS: MORPHINE 30 MG TAB **MSIR PO ×3 (06:36→18:54)
[2018-06-19] MEDS: DOCUSATE SODIUM 100 MG CAP PO ×2 (09:43→20:37)
[2018-06-19] MEDS: CALCIUM CARBONATE 500 MG CHEW U/D PO ×3 (09:43→18:50)
[2018-06-19] MEDS: SPIRONOLACTONE 25 MG TAB PO (09:43)
[2018-06-19] MEDS: buPROPion **XL** TABLET 150MG (WELLBUTRIN XL) PO (09:44)
[2018-06-19] MEDS: guaiFENesin ER 600 MG TAB PO ×2 (09:44→20:37)
[2018-06-19] MEDS: CARVedilol 6.25 MG TAB PO ×2 (09:44→20:38)
[2018-06-19] MEDS: ASPIRIN 81 MG ENTERIC TAB PO (09:44)
[2018-06-19] MEDS: PANTOPRAZOLE 40MG TAB (PROTONIX) PO (09:44)
[2018-06-19] MEDS: FINASTERIDE 5 MG TAB PO (09:44)
[2018-06-19] MEDS: NICOTINE 21MG/24HR 1 EA TRANSDERMAL TD (09:45)
[2018-06-19] MEDS: ACETAMINOPHEN 325 MG TAB PO ×3 (09:46→20:37)
[2018-06-19] MEDS: oxyCODONE 5MG TAB PO (09:49)
[2018-06-19] MEDS: WARFARIN SOD 3 MG TAB PO (16:56)
[2018-06-19] MEDS: BISACODYL 10 MG SUPP PR (17:32)
[2018-06-19] MEDS: ATORVASTATIN 20 MG TAB PO (20:36)
[2018-06-19] MEDS: SENNA 8.6 MG TAB (SENOKOT) PO (20:36)
[2018-06-19] MEDS: QUEtiapine FUMARATE 25 MG TAB PO (20:37)
[2018-06-20] MEDS: IPRATROPIUM 0.5MG/ALBUTEROL 2.5MG INH SOL UD 3ML (DUONEB)(J7620) NEB ×4 (02:00→19:20)
[2018-06-20] MEDS: MORPHINE 30 MG TAB **MSIR PO ×3 (06:39→18:31)
[2018-06-20] MEDS: oxyCODONE 20 MG CR TAB PO ×2 (06:39→18:30)
[2018-06-20 07:50] LABS: INR 3.72; PROTHROMBIN TIME 37.7 SECONDS (12.1-14.4)
[2018-06-20] MEDS: FINASTERIDE 5 MG TAB PO (09:33)
[2018-06-20] MEDS: PANTOPRAZOLE 40MG TAB (PROTONIX) PO (09:33)
[2018-06-20] MEDS: ASPIRIN 81 MG ENTERIC TAB PO (09:33)
[2018-06-20] MEDS: CALCIUM CARBONATE 500 MG CHEW U/D PO ×3 (09:33→18:29)
[2018-06-20] MEDS: buPROPion **XL** TABLET 150MG (WELLBUTRIN XL) PO (09:34)
[2018-06-20] MEDS: guaiFENesin ER 600 MG TAB PO ×2 (09:34→21:57)
[2018-06-20] MEDS: NICOTINE 21MG/24HR 1 EA TRANSDERMAL TD (09:34)
[2018-06-20] MEDS: DOCUSATE SODIUM 100 MG CAP PO ×2 (09:34→21:57)
[2018-06-20] MEDS: SPIRONOLACTONE 25 MG TAB PO (09:35)
[2018-06-20] MEDS: CARVedilol 6.25 MG TAB PO ×2 (09:35→21:57)
[2018-06-20] MEDS: ACETAMINOPHEN 325 MG TAB PO ×3 (09:36→21:56)
[2018-06-20] MEDS: oxyCODONE 5MG TAB PO (21:56)
[2018-06-20] MEDS: QUEtiapine FUMARATE 25 MG TAB PO (21:56)
[2018-06-20] MEDS: ATORVASTATIN 20 MG TAB PO (21:57)
[2018-06-20] MEDS: SENNA 8.6 MG TAB (SENOKOT) PO (21:57)
[2018-06-21] MEDS: IPRATROPIUM 0.5MG/ALBUTEROL 2.5MG INH SOL UD 3ML (DUONEB)(J7620) NEB ×4 (02:33→19:38)
[2018-06-21] MEDS: MORPHINE 30 MG TAB **MSIR PO ×3 (06:47→18:14)
[2018-06-21] MEDS: oxyCODONE 20 MG CR TAB PO ×2 (06:47→18:13)
[2018-06-21 07:24] LABS: INR 3.41; PROTHROMBIN TIME 35.2 SECONDS (12.1-14.4)
[2018-06-21] MEDS: CALCIUM CARBONATE 500 MG CHEW U/D PO ×3 (08:45→18:13)
[2018-06-21] MEDS: ASPIRIN 81 MG ENTERIC TAB PO (08:45)
[2018-06-21] MEDS: FINASTERIDE 5 MG TAB PO (08:45)
[2018-06-21] MEDS: ACETAMINOPHEN 325 MG TAB PO ×3 (08:45→21:35)
[2018-06-21] MEDS: PANTOPRAZOLE 40MG TAB (PROTONIX) PO (08:45)
[2018-06-21] MEDS: guaiFENesin ER 600 MG TAB PO ×2 (08:45→21:34)
[2018-06-21] MEDS: DOCUSATE SODIUM 100 MG CAP PO ×2 (08:45→21:35)
[2018-06-21] MEDS: buPROPion **XL** TABLET 150MG (WELLBUTRIN XL) PO (08:46)
[2018-06-21] MEDS: NICOTINE 21MG/24HR 1 EA TRANSDERMAL TD (08:46)
[2018-06-21] MEDS: SPIRONOLACTONE 25 MG TAB PO (08:46)
[2018-06-21] MEDS: CARVedilol 6.25 MG TAB PO ×2 (08:49→21:36)
[2018-06-21] MEDS: oxyCODONE 5MG TAB PO ×2 (08:54→21:41)
[2018-06-21] MEDS ORDERED: ONDANSETRON 4MG/2ML VIAL (J2405) IV (17:30)
[2018-06-21] MEDS: ONDANSETRON 4MG/2ML VIAL (J2405) IV (17:38)
[2018-06-21] MEDS: LACTULOSE 20 GM/30 ML SYRUP UD PO (18:13)
[2018-06-21] MEDS ORDERED: BISACODYL 10 MG SUPP PR (18:30)
[2018-06-21] MEDS: SENNA 8.6 MG TAB (SENOKOT) PO (21:34)
[2018-06-21] MEDS: QUEtiapine FUMARATE 25 MG TAB PO (21:34)
[2018-06-21] MEDS: ATORVASTATIN 20 MG TAB PO (21:35)
[2018-06-22] MEDS: IPRATROPIUM 0.5MG/ALBUTEROL 2.5MG INH SOL UD 3ML (DUONEB)(J7620) NEB ×4 (02:18→20:00)
[2018-06-22] MEDS: MORPHINE 30 MG TAB **MSIR PO ×3 (06:01→19:47)
[2018-06-22] MEDS: oxyCODONE 20 MG CR TAB PO ×2 (06:02→19:48)
[2018-06-22 07:05] LABS: BASO # 0.1 10^3/uL (0.0-0.2); BASO % 0.7 % (0.0-1.0); EOS # 0.4 10^3/uL (0.0-0.50); EOS % 3.6 % (0.0-3.0); HEMATOCRIT 37.3 % (42.0-52.0); IMMATURE GRANULOCYTE % 0.5 % (0-3.0); LYMPH # 2.3 10^3/uL (1.5-4.5); LYMPH % 20.9 % (24.0-44.0); MEAN CORPUSCULAR HEMOGLOBIN 29.6 pg (27.0-33.0); MEAN CORPUSCULAR HGB CONC 32.2 g/dl (32.0-36.5); MEAN CORPUSCULAR VOLUME 91.9 fl (80.0-96.0); MONO # 1.4 10^3/uL (0.0-0.8); MONO % 12.8 % (0.0-5.0); NEUTROPHILS # 6.7 10^3/uL (1.8-7.7); NEUTROPHILS % 61.5 % (36.0-66.0); PLATELET COUNT, AUTOMATED 246 10^3/uL (150-450); RED BLOOD COUNT 4.06 10^6/uL (4.30-6.10); RED CELL DISTRIBUTION WIDTH 14.4 % (11.5-14.5); WHITE BLOOD COUNT 10.9 10^3/uL (4.0-10.0)
[2018-06-22 07:13] LABS: INR 2.73; PROTHROMBIN TIME 29.5 SECONDS (12.1-14.4)
[2018-06-22 07:25] LABS: ALBUMIN 2.7 GM/DL (3.2-5.2); ALBUMIN/GLOBULIN RATIO 0.57 (1.00-1.93); ALKALINE PHOSPHATASE 148 U/L (45-117); ALT/SGPT 24 U/L (12-78); ANION GAP 5 MEQ/L (8-16); AST/SGOT 26 U/L (7-37); BILIRUBIN,TOTAL 0.5 MG/DL (0.2-1.0); BLOOD UREA NITROGEN 29 MG/DL (7-18); CALCIUM LEVEL 8.8 MG/DL (8.8-10.2); CARBON DIOXIDE LEVEL 27 MEQ/L (21-32); CHLORIDE LEVEL 107 MEQ/L (98-107); CREATININE FOR GFR 1.54 MG/DL (0.70-1.30); GLOMERULAR FILTRATION RATE 47.2 (>42); GLUCOSE, FASTING 82 MG/DL (70-100); SODIUM LEVEL 139 MEQ/L (136-145); TOTAL PROTEIN 7.4 GM/DL (6.4-8.2)
[2018-06-22] MEDS: BISACODYL 5 MG TAB PO (09:00)
[2018-06-22] MEDS: CALCIUM CARBONATE 500 MG CHEW U/D PO ×3 (09:39→16:51)
[2018-06-22] MEDS: NICOTINE 21MG/24HR 1 EA TRANSDERMAL TD (09:41)
[2018-06-22] MEDS: buPROPion **XL** TABLET 150MG (WELLBUTRIN XL) PO (09:41)
[2018-06-22] MEDS: ACETAMINOPHEN 325 MG TAB PO ×3 (09:41→20:13)
[2018-06-22] MEDS: FINASTERIDE 5 MG TAB PO (09:41)
[2018-06-22] MEDS: guaiFENesin ER 600 MG TAB PO ×2 (09:42→20:13)
[2018-06-22] MEDS: SPIRONOLACTONE 25 MG TAB PO (09:42)
[2018-06-22] MEDS: CARVedilol 6.25 MG TAB PO ×2 (09:42→20:13)
[2018-06-22] MEDS: ASPIRIN 81 MG ENTERIC TAB PO (09:43)
[2018-06-22] MEDS: DOCUSATE SODIUM 100 MG CAP PO ×2 (09:43→20:14)
[2018-06-22] MEDS: PANTOPRAZOLE 40MG TAB (PROTONIX) PO (09:43)
[2018-06-22 12:22] LABS: KETONE, URINE AUTO RFX NEGATIVE (NEGATIVE); LEUKOCYTE ESTERASE UR AUTO RFX NEGATIVE (NEGATIVE); NITRITE, URINE AUTO RFX NEGATIVE (NEGATIVE); RBC, URINE AUTO RFX 0 /HPF (0-3); SPECIFIC GRAVITY UR AUTO RFX 1.017 (1.002-1.035); SQUAM EPITHELIAL CELL UR AURFX 0 /HPF (0-6); WBC, URINE AUTO RFX 0 /HPF (0-3)
[2018-06-22] MEDS: WARFARIN SOD 2.5 MG TAB PO (16:51)
[2018-06-22] MEDS: QUEtiapine FUMARATE 25 MG TAB PO (20:13)
[2018-06-22] MEDS: ATORVASTATIN 20 MG TAB PO (20:13)
[2018-06-22] MEDS: SENNA 8.6 MG TAB (SENOKOT) PO (20:14)
[2018-06-23] MEDS: IPRATROPIUM 0.5MG/ALBUTEROL 2.5MG INH SOL UD 3ML (DUONEB)(J7620) NEB ×4 (02:00→20:34)
[2018-06-23] MEDS: oxyCODONE 20 MG CR TAB PO ×2 (06:19→18:04)
[2018-06-23] MEDS: MORPHINE 30 MG TAB **MSIR PO ×3 (06:20→18:04)
[2018-06-23] MEDS: BISACODYL 5 MG TAB PO (07:59)
[2018-06-23] MEDS: DOCUSATE SODIUM 100 MG CAP PO ×2 (07:59→21:21)
[2018-06-23] MEDS: CALCIUM CARBONATE 500 MG CHEW U/D PO ×2 (08:00→08:43)
[2018-06-23] MEDS: buPROPion **XL** TABLET 150MG (WELLBUTRIN XL) PO (08:42)
[2018-06-23] MEDS: guaiFENesin ER 600 MG TAB PO (08:43)
[2018-06-23] MEDS: FINASTERIDE 5 MG TAB PO (08:43)
[2018-06-23] MEDS: CARVedilol 6.25 MG TAB PO ×2 (08:43→21:22)
[2018-06-23] MEDS: ASPIRIN 81 MG ENTERIC TAB PO (08:43)
[2018-06-23] MEDS: ACETAMINOPHEN 325 MG TAB PO ×3 (08:43→21:22)
[2018-06-23] MEDS: SPIRONOLACTONE 25 MG TAB PO (08:45)
[2018-06-23] MEDS: PANTOPRAZOLE 40MG TAB (PROTONIX) PO (08:45)
[2018-06-23] MEDS: NICOTINE 14 MG/24 HR TRANSDERMAL TD (11:11)
[2018-06-23] MEDS: CHLORHEXIDINE ORAL RINSE 0.12%/15ML 120ML BOTTLE SSP ×3 (11:12→21:00)
[2018-06-23] MEDS: SALIVA SUBSTITUTE(MOUTHKOTE) BTL MT ×3 (11:12→21:00)
[2018-06-23 11:32] LABS: INR 2.69; PROTHROMBIN TIME 29.2 SECONDS (12.1-14.4)
[2018-06-23] MEDS ORDERED: PILL CRUSHER/CUTTER 1 EACH XX (15:45)
[2018-06-23] MEDS: WARFARIN SOD 2.5 MG TAB PO (16:07)
[2018-06-23] MEDS: FLUTICASONE PROP 0.05% NASAL SPRAY 16 GM (FLONASE) NARES (17:08)
[2018-06-23] MEDS ORDERED: guaiFENesin ER 600 MG TAB PO (21:00)
[2018-06-23] MEDS: SODIUM CHLORIDE NASAL 0.65% SPRAY BTL (OCEAN) (21:00)
[2018-06-23] MEDS: ASCORBIC ACID 500 MG TAB PO (21:21)
[2018-06-23] MEDS: QUEtiapine FUMARATE 25 MG TAB PO (21:22)
[2018-06-23] MEDS: ATORVASTATIN 20 MG TAB PO (21:22)
[2018-06-23] MEDS: SENNA 8.6 MG TAB (SENOKOT) PO (21:22)
[2018-06-24] MEDS: IPRATROPIUM 0.5MG/ALBUTEROL 2.5MG INH SOL UD 3ML (DUONEB)(J7620) NEB ×5 (02:00→20:02)
[2018-06-24] MEDS: oxyCODONE 20 MG CR TAB PO ×2 (07:09→19:33)
[2018-06-24] MEDS: MORPHINE 30 MG TAB **MSIR PO ×3 (07:10→19:33)
[2018-06-24 07:19] LABS: INR 2.55; PROTHROMBIN TIME 27.9 SECONDS (12.1-14.4)
[2018-06-24] MEDS: CARVedilol 6.25 MG TAB PO ×2 (08:24→20:18)
[2018-06-24] MEDS: buPROPion **XL** TABLET 150MG (WELLBUTRIN XL) PO (08:25)
[2018-06-24] MEDS: ACETAMINOPHEN 325 MG TAB PO ×3 (08:25→20:21)
[2018-06-24] MEDS: SPIRONOLACTONE 25 MG TAB PO (08:25)
[2018-06-24] MEDS: FINASTERIDE 5 MG TAB PO (08:26)
[2018-06-24] MEDS: DOCUSATE SODIUM 100 MG CAP PO ×2 (08:26→20:18)
[2018-06-24] MEDS: ASCORBIC ACID 500 MG TAB PO ×2 (08:26→20:22)
[2018-06-24] MEDS: PANTOPRAZOLE 40MG TAB (PROTONIX) PO (08:26)
[2018-06-24] MEDS: BISACODYL 5 MG TAB PO (08:26)
[2018-06-24] MEDS: ASPIRIN 81 MG ENTERIC TAB PO (08:26)
[2018-06-24] MEDS: SODIUM CHLORIDE NASAL 0.65% SPRAY BTL (OCEAN) ×2 (08:28→20:24)
[2018-06-24] MEDS: FLUTICASONE PROP 0.05% NASAL SPRAY 16 GM (FLONASE) NARES (08:28)
[2018-06-24] MEDS: SALIVA SUBSTITUTE(MOUTHKOTE) BTL MT ×3 (08:29→20:20)
[2018-06-24] MEDS: CHLORHEXIDINE ORAL RINSE 0.12%/15ML 120ML BOTTLE SSP ×3 (08:29→20:24)
[2018-06-24] MEDS: NICOTINE 14 MG/24 HR TRANSDERMAL TD (08:30)
[2018-06-24] MEDS: oxyCODONE 5MG TAB PO ×2 (08:56→16:05)
[2018-06-24] MEDS: WARFARIN SOD 2.5 MG TAB PO (16:05)
[2018-06-24] MEDS: QUEtiapine FUMARATE 25 MG TAB PO (20:16)
[2018-06-24] MEDS: SENNA 8.6 MG TAB (SENOKOT) PO (20:16)
[2018-06-24] MEDS: ATORVASTATIN 20 MG TAB PO (20:16)
[2018-06-25] MEDS: IPRATROPIUM 0.5MG/ALBUTEROL 2.5MG INH SOL UD 3ML (DUONEB)(J7620) NEB ×4 (01:00→21:02)
[2018-06-25] MEDS: MORPHINE 30 MG TAB **MSIR PO ×3 (06:11→18:21)
[2018-06-25] MEDS: oxyCODONE 20 MG CR TAB PO ×2 (06:13→18:20)
[2018-06-25 08:02] LABS: INR 2.58; PROTHROMBIN TIME 28.2 SECONDS (12.1-14.4)
[2018-06-25] MEDS: NICOTINE 14 MG/24 HR TRANSDERMAL TD (08:15)
[2018-06-25] MEDS: SPIRONOLACTONE 25 MG TAB PO (08:15)
[2018-06-25] MEDS: DOCUSATE SODIUM 100 MG CAP PO ×2 (08:15→21:22)
[2018-06-25] MEDS: buPROPion **XL** TABLET 150MG (WELLBUTRIN XL) PO (08:15)
[2018-06-25] MEDS: FINASTERIDE 5 MG TAB PO (08:15)
[2018-06-25] MEDS: ASPIRIN 81 MG ENTERIC TAB PO (08:15)
[2018-06-25] MEDS: PANTOPRAZOLE 40MG TAB (PROTONIX) PO (08:15)
[2018-06-25] MEDS: ASCORBIC ACID 500 MG TAB PO ×2 (08:15→21:23)
[2018-06-25] MEDS: CARVedilol 6.25 MG TAB PO ×2 (08:15→21:24)
[2018-06-25] MEDS: CHLORHEXIDINE ORAL RINSE 0.12%/15ML 120ML BOTTLE SSP ×3 (08:16→21:39)
[2018-06-25] MEDS: SALIVA SUBSTITUTE(MOUTHKOTE) BTL MT ×3 (08:16→21:39)
[2018-06-25] MEDS: BISACODYL 5 MG TAB PO (08:16)
[2018-06-25] MEDS: ACETAMINOPHEN 325 MG TAB PO ×3 (08:16→21:23)
[2018-06-25] MEDS: SODIUM CHLORIDE NASAL 0.65% SPRAY BTL (OCEAN) ×2 (08:17→21:39)
[2018-06-25] MEDS: FLUTICASONE PROP 0.05% NASAL SPRAY 16 GM (FLONASE) NARES (08:17)
[2018-06-25] MEDS ORDERED: ONDANSETRON 4MG/2ML VIAL (J2405) IV (14:00)
[2018-06-25] MEDS: WARFARIN SOD 2.5 MG TAB PO (16:25)
[2018-06-25] MEDS: SENNA 8.6 MG TAB (SENOKOT) PO (21:22)
[2018-06-25] MEDS: ATORVASTATIN 20 MG TAB PO (21:23)
[2018-06-25] MEDS: QUEtiapine FUMARATE 25 MG TAB PO (21:23)
[2018-06-26] MEDS: IPRATROPIUM 0.5MG/ALBUTEROL 2.5MG INH SOL UD 3ML (DUONEB)(J7620) NEB ×4 (01:20→22:14)
[2018-06-26] MEDS: MORPHINE 30 MG TAB **MSIR PO ×3 (06:18→18:26)
[2018-06-26] MEDS: oxyCODONE 20 MG CR TAB PO ×2 (06:18→18:27)
[2018-06-26 07:40] LABS: INR 2.95; PROTHROMBIN TIME 31.4 SECONDS (12.1-14.4)
[2018-06-26] MEDS: BISACODYL 5 MG TAB PO (08:33)
[2018-06-26] MEDS: FINASTERIDE 5 MG TAB PO (08:33)
[2018-06-26] MEDS: PANTOPRAZOLE 40MG TAB (PROTONIX) PO (08:33)
[2018-06-26] MEDS: DOCUSATE SODIUM 100 MG CAP PO ×2 (08:33→21:31)
[2018-06-26] MEDS: ASCORBIC ACID 500 MG TAB PO ×2 (08:33→21:31)
[2018-06-26] MEDS: CARVedilol 6.25 MG TAB PO ×2 (08:33→21:31)
[2018-06-26] MEDS: ASPIRIN 81 MG ENTERIC TAB PO (08:33)
[2018-06-26] MEDS: buPROPion **XL** TABLET 150MG (WELLBUTRIN XL) PO (08:33)
[2018-06-26] MEDS: NICOTINE 14 MG/24 HR TRANSDERMAL TD (08:34)
[2018-06-26] MEDS: ACETAMINOPHEN 325 MG TAB PO ×3 (08:34→21:32)
[2018-06-26] MEDS: CHLORHEXIDINE ORAL RINSE 0.12%/15ML 120ML BOTTLE SSP ×3 (08:35→21:32)
[2018-06-26] MEDS: SALIVA SUBSTITUTE(MOUTHKOTE) BTL MT ×3 (08:35→21:32)
[2018-06-26] MEDS: SODIUM CHLORIDE NASAL 0.65% SPRAY BTL (OCEAN) ×2 (08:35→21:32)
[2018-06-26] MEDS: FLUTICASONE PROP 0.05% NASAL SPRAY 16 GM (FLONASE) NARES (08:35)
[2018-06-26] MEDS: SPIRONOLACTONE 25 MG TAB PO (08:37)
[2018-06-26] MEDS: WARFARIN SOD 2.5 MG TAB PO (16:49)
[2018-06-26] MEDS: QUEtiapine FUMARATE 25 MG TAB PO (21:31)
[2018-06-26] MEDS: SENNA 8.6 MG TAB (SENOKOT) PO (21:31)
[2018-06-26] MEDS: ATORVASTATIN 20 MG TAB PO (21:31)
[2018-06-27] MEDS: IPRATROPIUM 0.5MG/ALBUTEROL 2.5MG INH SOL UD 3ML (DUONEB)(J7620) NEB ×4 (02:06→19:12)
[2018-06-27] MEDS: MORPHINE 30 MG TAB **MSIR PO ×3 (06:09→18:25)
[2018-06-27] MEDS: oxyCODONE 20 MG CR TAB PO ×2 (06:10→18:25)
[2018-06-27 07:18] LABS: INR 3.03; PROTHROMBIN TIME 32.1 SECONDS (12.1-14.4)
[2018-06-27] MEDS: ASPIRIN 81 MG ENTERIC TAB PO (08:06)
[2018-06-27] MEDS: CARVedilol 6.25 MG TAB PO ×2 (08:06→20:27)
[2018-06-27] MEDS: FINASTERIDE 5 MG TAB PO (08:06)
[2018-06-27] MEDS: SPIRONOLACTONE 25 MG TAB PO (08:06)
[2018-06-27] MEDS: PANTOPRAZOLE 40MG TAB (PROTONIX) PO (08:06)
[2018-06-27] MEDS: ACETAMINOPHEN 325 MG TAB PO ×3 (08:07→20:27)
[2018-06-27] MEDS: buPROPion **XL** TABLET 150MG (WELLBUTRIN XL) PO (08:07)
[2018-06-27] MEDS: ASCORBIC ACID 500 MG TAB PO ×2 (08:07→20:26)
[2018-06-27] MEDS: BISACODYL 5 MG TAB PO (08:07)
[2018-06-27] MEDS: SALIVA SUBSTITUTE(MOUTHKOTE) BTL MT ×3 (08:08→20:27)
[2018-06-27] MEDS: CHLORHEXIDINE ORAL RINSE 0.12%/15ML 120ML BOTTLE SSP ×3 (08:08→20:28)
[2018-06-27] MEDS: DOCUSATE SODIUM 100 MG CAP PO ×2 (08:08→20:26)
[2018-06-27] MEDS: FLUTICASONE PROP 0.05% NASAL SPRAY 16 GM (FLONASE) NARES (08:09)
[2018-06-27] MEDS: NICOTINE 14 MG/24 HR TRANSDERMAL TD (08:09)
[2018-06-27] MEDS: SODIUM CHLORIDE NASAL 0.65% SPRAY BTL (OCEAN) ×2 (08:09→20:28)
[2018-06-27] MEDS: BISACODYL 10 MG SUPP PR (09:09)
[2018-06-27] MEDS: SENNA 8.6 MG TAB (SENOKOT) PO (20:26)
[2018-06-27] MEDS: ATORVASTATIN 20 MG TAB PO (20:26)
[2018-06-27] MEDS: QUEtiapine FUMARATE 25 MG TAB PO (20:27)
[2018-06-28] MEDS: IPRATROPIUM 0.5MG/ALBUTEROL 2.5MG INH SOL UD 3ML (DUONEB)(J7620) NEB ×4 (01:04→19:51)
[2018-06-28] MEDS: MORPHINE 30 MG TAB **MSIR PO ×3 (06:16→18:23)
[2018-06-28] MEDS: oxyCODONE 20 MG CR TAB PO ×2 (06:16→18:23)
[2018-06-28] MEDS: NICOTINE 14 MG/24 HR TRANSDERMAL TD (08:11)
[2018-06-28] MEDS: FINASTERIDE 5 MG TAB PO (08:13)
[2018-06-28] MEDS: BISACODYL 5 MG TAB PO (08:13)
[2018-06-28] MEDS: ASPIRIN 81 MG ENTERIC TAB PO (08:13)
[2018-06-28] MEDS: PANTOPRAZOLE 40MG TAB (PROTONIX) PO (08:13)
[2018-06-28] MEDS: DOCUSATE SODIUM 100 MG CAP PO ×2 (08:13→20:39)
[2018-06-28] MEDS: buPROPion **XL** TABLET 150MG (WELLBUTRIN XL) PO (08:13)
[2018-06-28] MEDS: ACETAMINOPHEN 325 MG TAB PO ×3 (08:13→20:40)
[2018-06-28] MEDS: ASCORBIC ACID 500 MG TAB PO ×2 (08:14→20:39)
[2018-06-28] MEDS: CARVedilol 6.25 MG TAB PO ×2 (08:14→20:40)
[2018-06-28] MEDS: SPIRONOLACTONE 25 MG TAB PO (08:14)
[2018-06-28] MEDS: SODIUM CHLORIDE NASAL 0.65% SPRAY BTL (OCEAN) ×2 (08:15→20:41)
[2018-06-28] MEDS: FLUTICASONE PROP 0.05% NASAL SPRAY 16 GM (FLONASE) NARES (08:15)
[2018-06-28] MEDS: SALIVA SUBSTITUTE(MOUTHKOTE) BTL MT ×3 (08:16→20:41)
[2018-06-28 08:20] LABS: BASO # 0.1 10^3/uL (0.0-0.2); BASO % 0.8 % (0.0-1.0); EOS # 0.4 10^3/uL (0.0-0.50); EOS % 2.9 % (0.0-3.0); HEMATOCRIT 35.9 % (42.0-52.0); HEMOGLOBIN 11.9 g/dl (13.5-17.5); IMMATURE GRANULOCYTE % 0.4 % (0-3.0); LYMPH # 2.2 10^3/uL (1.5-4.5); LYMPH % 17.9 % (24.0-44.0); MEAN CORPUSCULAR HEMOGLOBIN 30.3 pg (27.0-33.0); MEAN CORPUSCULAR HGB CONC 33.1 g/dl (32.0-36.5); MEAN CORPUSCULAR VOLUME 91.3 fl (80.0-96.0); NEUTROPHILS # 8.7 10^3/uL (1.8-7.7); PLATELET COUNT, AUTOMATED 208 10^3/uL (150-450); RED BLOOD COUNT 3.93 10^6/uL (4.30-6.10); RED CELL DISTRIBUTION WIDTH 14.8 % (11.5-14.5); WHITE BLOOD COUNT 12.5 10^3/uL (4.0-10.0)
[2018-06-28 08:33] LABS: INR 2.43; PROTHROMBIN TIME 26.9 SECONDS (12.1-14.4)
[2018-06-28 08:42] LABS: ANION GAP 9 MEQ/L (8-16); BLOOD UREA NITROGEN 25 MG/DL (7-18); CALCIUM LEVEL 8.9 MG/DL (8.8-10.2); CARBON DIOXIDE LEVEL 24 MEQ/L (21-32); CHLORIDE LEVEL 109 MEQ/L (98-107); CREATININE FOR GFR 1.42 MG/DL (0.70-1.30); GLOMERULAR FILTRATION RATE 51.9 (>42); GLUCOSE, FASTING 92 MG/DL (70-100); POTASSIUM SERUM 4.1 MEQ/L (3.5-5.1); SODIUM LEVEL 142 MEQ/L (136-145)
[2018-06-28] MEDS: CHLORHEXIDINE ORAL RINSE 0.12%/15ML 120ML BOTTLE SSP ×3 (12:51→20:41)
[2018-06-28] MEDS: WARFARIN SOD 3 MG TAB PO (16:47)
[2018-06-28] MEDS: SENNA 8.6 MG TAB (SENOKOT) PO (20:40)
[2018-06-28] MEDS: QUEtiapine FUMARATE 25 MG TAB PO (20:40)
[2018-06-28] MEDS: ATORVASTATIN 20 MG TAB PO (20:40)
[2018-06-29] MEDS: IPRATROPIUM 0.5MG/ALBUTEROL 2.5MG INH SOL UD 3ML (DUONEB)(J7620) NEB ×4 (00:18→20:00)
[2018-06-29] MEDS: MORPHINE 30 MG TAB **MSIR PO ×3 (06:43→18:37)
[2018-06-29] MEDS: oxyCODONE 20 MG CR TAB PO ×2 (06:44→18:37)
[2018-06-29] MEDS: BISACODYL 5 MG TAB PO (09:00)
[2018-06-29] MEDS: CHLORHEXIDINE ORAL RINSE 0.12%/15ML 120ML BOTTLE SSP ×3 (09:00→20:19)
[2018-06-29] MEDS: DOCUSATE SODIUM 100 MG CAP PO ×2 (09:00→20:20)
[2018-06-29] MEDS: ASCORBIC ACID 500 MG TAB PO ×2 (09:34→20:21)
[2018-06-29] MEDS: NICOTINE 14 MG/24 HR TRANSDERMAL TD (09:34)
[2018-06-29] MEDS: FINASTERIDE 5 MG TAB PO (09:35)
[2018-06-29] MEDS: buPROPion **XL** TABLET 150MG (WELLBUTRIN XL) PO (09:35)
[2018-06-29] MEDS: SPIRONOLACTONE 25 MG TAB PO (09:35)
[2018-06-29] MEDS: PANTOPRAZOLE 40MG TAB (PROTONIX) PO (09:35)
[2018-06-29] MEDS: CARVedilol 6.25 MG TAB PO ×2 (09:35→20:20)
[2018-06-29] MEDS: ASPIRIN 81 MG ENTERIC TAB PO (09:35)
[2018-06-29] MEDS: ACETAMINOPHEN 325 MG TAB PO ×3 (09:35→20:19)
[2018-06-29] MEDS: SODIUM CHLORIDE NASAL 0.65% SPRAY BTL (OCEAN) ×2 (09:36→20:19)
[2018-06-29] MEDS: SALIVA SUBSTITUTE(MOUTHKOTE) BTL MT ×3 (09:36→20:19)
[2018-06-29] MEDS: FLUTICASONE PROP 0.05% NASAL SPRAY 16 GM (FLONASE) NARES (09:36)
[2018-06-29 12:01] LABS: KETONE, URINE AUTO RFX NEGATIVE (NEGATIVE); LEUKOCYTE ESTERASE UR AUTO RFX NEGATIVE (NEGATIVE); NITRITE, URINE AUTO RFX NEGATIVE (NEGATIVE); RBC, URINE AUTO RFX 2 /HPF (0-3); SPECIFIC GRAVITY UR AUTO RFX 1.014 (1.002-1.035); SQUAM EPITHELIAL CELL UR AURFX 0 /HPF (0-6); WBC, URINE AUTO RFX 0 /HPF (0-3)
[2018-06-29] MEDS: WARFARIN SOD 3 MG TAB PO (17:35)
[2018-06-29] MEDS: QUEtiapine FUMARATE 25 MG TAB PO (20:20)
[2018-06-29] MEDS: SENNA 8.6 MG TAB (SENOKOT) PO (20:21)
[2018-06-29] MEDS: ATORVASTATIN 20 MG TAB PO (20:21)
[2018-06-30] MEDS: IPRATROPIUM 0.5MG/ALBUTEROL 2.5MG INH SOL UD 3ML (DUONEB)(J7620) NEB ×4 (01:46→20:08)
[2018-06-30] MEDS: MORPHINE 30 MG TAB **MSIR PO ×3 (06:38→18:45)
[2018-06-30] MEDS: oxyCODONE 20 MG CR TAB PO ×2 (06:39→18:45)
[2018-06-30 07:48] LABS: INR 1.81; PROTHROMBIN TIME 21.3 SECONDS (12.1-14.4)
[2018-06-30] MEDS: NICOTINE 14 MG/24 HR TRANSDERMAL TD (08:20)
[2018-06-30] MEDS: buPROPion **XL** TABLET 150MG (WELLBUTRIN XL) PO (08:20)
[2018-06-30] MEDS: ASPIRIN 81 MG ENTERIC TAB PO (08:20)
[2018-06-30] MEDS: ASCORBIC ACID 500 MG TAB PO ×2 (08:20→20:39)
[2018-06-30] MEDS: PANTOPRAZOLE 40MG TAB (PROTONIX) PO (08:20)
[2018-06-30] MEDS: CARVedilol 6.25 MG TAB PO ×2 (08:21→20:38)
[2018-06-30] MEDS: SPIRONOLACTONE 25 MG TAB PO (08:21)
[2018-06-30] MEDS: FINASTERIDE 5 MG TAB PO (08:21)
[2018-06-30] MEDS: ACETAMINOPHEN 325 MG TAB PO ×3 (08:21→20:39)
[2018-06-30] MEDS: SALIVA SUBSTITUTE(MOUTHKOTE) BTL MT ×3 (08:22→20:39)
[2018-06-30] MEDS: DOCUSATE SODIUM 100 MG CAP PO ×2 (08:22→20:38)
[2018-06-30] MEDS: BISACODYL 5 MG TAB PO (08:23)
[2018-06-30] MEDS: FLUTICASONE PROP 0.05% NASAL SPRAY 16 GM (FLONASE) NARES (08:24)
[2018-06-30] MEDS: SODIUM CHLORIDE NASAL 0.65% SPRAY BTL (OCEAN) ×2 (08:24→20:39)
[2018-06-30] MEDS: CHLORHEXIDINE ORAL RINSE 0.12%/15ML 120ML BOTTLE SSP ×3 (08:24→20:40)
[2018-06-30] MEDS: FLUBLOK(EGG FREE)(QUAD)INFLUENZA VACC 0.5ML SYRINGE (90682)18YRS&OLDER IM (10:50)
[2018-06-30] MEDS: WARFARIN SOD 2 MG TAB PO (17:12)
[2018-06-30] MEDS: QUEtiapine FUMARATE 25 MG TAB PO (20:38)
[2018-06-30] MEDS: ATORVASTATIN 20 MG TAB PO (20:38)
[2018-06-30] MEDS: SENNA 8.6 MG TAB (SENOKOT) PO (20:38)
[2018-07-01] MEDS: IPRATROPIUM 0.5MG/ALBUTEROL 2.5MG INH SOL UD 3ML (DUONEB)(J7620) NEB ×2 (01:31→07:21)
[2018-07-01] MEDS: oxyCODONE 20 MG CR TAB PO (06:49)
[2018-07-01] MEDS: MORPHINE 30 MG TAB **MSIR PO (06:49)
[2018-07-01 07:21] LABS: BASO # 0.1 10^3/uL (0.0-0.2); BASO % 0.7 % (0.0-1.0); EOS # 0.4 10^3/uL (0.0-0.50); EOS % 3.4 % (0.0-3.0); HEMOGLOBIN 11.3 g/dl (13.5-17.5); IMMATURE GRANULOCYTE % 0.5 % (0-3.0); LYMPH # 1.5 10^3/uL (1.5-4.5); LYMPH % 12.2 % (24.0-44.0); MEAN CORPUSCULAR HEMOGLOBIN 30.1 pg (27.0-33.0); MEAN CORPUSCULAR HGB CONC 32.3 g/dl (32.0-36.5); MEAN CORPUSCULAR VOLUME 93.3 fl (80.0-96.0); MONO # 0.9 10^3/uL (0.0-0.8); MONO % 7.5 % (0.0-5.0); NEUTROPHILS % 75.7 % (36.0-66.0); PLATELET COUNT, AUTOMATED 199 10^3/uL (150-450); RED BLOOD COUNT 3.75 10^6/uL (4.30-6.10); RED CELL DISTRIBUTION WIDTH 14.7 % (11.5-14.5); WHITE BLOOD COUNT 11.9 10^3/uL (4.0-10.0)
[2018-07-01 07:35] LABS: INR 1.75; PROTHROMBIN TIME 20.7 SECONDS (12.1-14.4)
[2018-07-01] MEDS: NICOTINE 14 MG/24 HR TRANSDERMAL TD (09:28)
[2018-07-01] MEDS: ACETAMINOPHEN 325 MG TAB PO (09:29)
[2018-07-01] MEDS: FINASTERIDE 5 MG TAB PO (09:29)
[2018-07-01] MEDS: SPIRONOLACTONE 25 MG TAB PO (09:29)
[2018-07-01] MEDS: PANTOPRAZOLE 40MG TAB (PROTONIX) PO (09:29)
[2018-07-01] MEDS: ASPIRIN 81 MG ENTERIC TAB PO (09:30)
[2018-07-01] MEDS: buPROPion **XL** TABLET 150MG (WELLBUTRIN XL) PO (09:30)
[2018-07-01] MEDS: ASCORBIC ACID 500 MG TAB PO (09:30)
[2018-07-01] MEDS: CARVedilol 6.25 MG TAB PO (09:30)
[2018-07-01] MEDS: SALIVA SUBSTITUTE(MOUTHKOTE) BTL MT (09:30)
[2018-07-01] MEDS: FLUTICASONE PROP 0.05% NASAL SPRAY 16 GM (FLONASE) NARES (09:32)
[2018-07-01] MEDS: CHLORHEXIDINE ORAL RINSE 0.12%/15ML 120ML BOTTLE SSP (09:33)
[2018-07-01] MEDS: SODIUM CHLORIDE NASAL 0.65% SPRAY BTL (OCEAN) (09:33)
[2018-07-01] MEDS: DOCUSATE SODIUM 100 MG CAP PO (09:34)
[2018-07-01] MEDS: BISACODYL 5 MG TAB PO (09:34)
== END 2018-07-01 11:15 | DRG 56 ==
LOC: M PM&R 14:21
DX: I69.354 Hemiplegia and hemiparesis following cerebral infarction affecting left non-dominant side (principal); J69.0 Pneumonitis due to inhalation of food and vomit; I13.0 Hypertensive heart and chronic kidney disease with heart failure and stage 1 through stage 4 chronic kidney disease, or unspecified chronic kidney disease; K59.03 Drug induced constipation; T40.2X5A Adverse effect of other opioids, initial encounter; I69.322 Dysarthria following cerebral infarction; I69.391 Dysphagia following cerebral infarction; N18.3 Chronic kidney disease, stage 3 (moderate); I50.9 Heart failure, unspecified; I25.10 Atherosclerotic heart disease of native coronary artery without angina pectoris; R05 Cough; I48.91 Unspecified atrial fibrillation; M54.2 Cervicalgia; R51 Headache; I65.23 Occlusion and stenosis of bilateral carotid arteries; E83.51 Hypocalcemia; M54.5 Low back pain; J34.1 Cyst and mucocele of nose and nasal sinus; F17.210 Nicotine dependence, cigarettes, uncomplicated; E78.5 Hyperlipidemia, unspecified; G47.00 Insomnia, unspecified; F41.9 Anxiety disorder, unspecified; B35.1 Tinea unguium; K21.9 Gastro-esophageal reflux disease without esophagitis; R33.9 Retention of urine, unspecified; F32.9 Major depressive disorder, single episode, unspecified; Z79.01 Long term (current) use of anticoagulants; Z95.0 Presence of cardiac pacemaker; Z79.82 Long term (current) use of aspirin; Z95.2 Presence of prosthetic heart valve; Z79.891 Long term (current) use of opiate analgesic; Z79.899 Other long term (current) drug therapy; Z88.5 Allergy status to narcotic agent; Z88.8 Allergy status to other drugs, medicaments and biological substances; Z98.1 Arthrodesis status